=== PATIENT | female | born 1950 | race Caucasian/White ===

== ENCOUNTER → 2020-06-21 | Outpatient (CLI) | payer MEDICARE, OTHER ==
[~2020-06-21] MED LIST: ASCO500 PO; ASPI81CH PO; Aspirin EC81 MG PO; CLAR500CR; CODLIVC PO; DHEA; DHEA PO; ESTRIOL VAG; Evening Primro500 MG PO; Lamisil250 MG PO; METR500 PO; MULVITA PO; Multiple Vitam1 EAC1 PO; NATURE THROID; Natrol Alpha 3300 MG PO; OXYACE5T PO; Omeprazole20 M1; PROG100 PO; THYR60 PO; THYROID PO
[2020-06-21 17:18] LABS: BASOPHILS ABSOLUTE AUTO 0.07 K/mm3 (0.00-0.23); BASOPHILS PERCENT AUTO 1 % (0-2); EOSINOPHILS ABSOLUTE AUTO 0.09 K/mm3 (0.00-0.68); EOSINOPHILS PERCENT AUTO 1 % (0-6); Hematocrit 47.6 % (33.0-51.0); IMMATURE GRAN ABSOLUTE AUTO 0.02 K/mm3 (0.00-0.10); IMMATURE GRAN PERCENT AUTO 0 % (0-1); LYMPHOCYTES ABSOLUTE AUTO 2.83 K/mm3 (0.84-5.20); LYMPHOCYTES PERCENT AUTO 28 % (21-46); MONOCYTES ABSOLUTE AUTO 0.75 K/mm3 (0.16-1.47); MONOCYTES PERCENT AUTO 7 % (4-13); Mean Corpuscular HGB Conc 31.5 g/dL (31.5-36.5); Mean Corpuscular Volume 95 fL (80-100); Mean Platelet Volume 10.8 fL (9.1-12.4); NEUTROPHILS ABSOLUTE AUTO 6.35 K/mm3 (1.96-9.15); NEUTROPHILS PERCENT AUTO 63 % (41-73); Platelet Count 484 K/mm3 (150-400); RDW Coefficient Variation 14.6 % (11.7-14.2); RDW Standard Deviation 50.9 fL (35.1-46.3); White Blood Cell Count 10.11 K/mm3 (4.00-11.30)
== END ==
LOC: PLD 15:45 → LAB SHORT 15:45
PROVIDERS: Obstetrics & Gynecology
DX: Z01.812 Encounter for preprocedural laboratory examination (principal)
CPT/HCPCS: 36415; 85025

== ENCOUNTER 2020-06-27 09:06 | Day surgery (SDC) | payer MEDICARE, OTHER ==
[~2020-06-27] VITALS: Ht 162.6 cm; Wt 67.9 kg
[~2020-06-27 09:06] MED LIST changes: -NATURE THROID
--- NOTE | 2020-06-27 10:00 | NUR ---
History, Chart, Medications and Allergies reviewed before start of procedure. Lungs clear T/O to Auscultation. Patient confirms NPO status and agrees with scheduled surgery. Pre-Op teaching done. Pt verbalizes understanding. Patient States Post-Procedure ride home has been arranged.
[2020-06-27] MEDS ORDERED: NATURE THROID (10:08)
--- NOTE | 2020-06-27 13:02 | NUR ---
PT UP TO BATHROOM TO HAVE A BM; SMALL STOOL PASSED. VAGINAL BLEEDING NOTED IN TOILET; PAD GIVEN.
--- NOTE | 2020-06-27 13:12 | NUR ---
IBUPROFEN 800MG PO X1 GIVEN PER ORDERS FOR PAIN. REFUSES TO TAKE NORCO. PAIN LEVEL 6/10. TOLERATING PO INTAKE. GOOD RELIEF WITH NAUSEA MED.
--- NOTE | 2020-06-27 13:30 | NUR ---
Ambulatory in Day Surgery Discharge instructions reviewed with patient. Patient verbalizes understanding. Copy given to patient to take home. Patient States Post-Procedure ride home has been arranged. Discharged via wheelchair to private car for ride home.
== END 2020-06-27 13:37 | disposition home or self-care (01) ==
LOC: ORSCMMR 09:06 → ORD 09:06 → ORSCMMR 09:07 → ORD 12:00
PROVIDERS: Obstetrics & Gynecology
PROC: 0UB98ZX Excision of Uterus, Via Natural or Artificial Opening Endoscopic, Diagnostic (ICD-10-PCS; principal; 2020-06-27 11:00)
DX: R93.89 Abnormal findings on diagnostic imaging of other specified body structures (principal); N84.0 Polyp of corpus uteri; Z87.891 Personal history of nicotine dependence; J44.9 Chronic obstructive pulmonary disease, unspecified; E03.9 Hypothyroidism, unspecified; Z79.899 Other long term (current) drug therapy
CPT/HCPCS: 88305; 93005; 93010; J1885; J2250; J2405; J3010; J7120

== ENCOUNTER → 2022-12-27 | Outpatient (CLI) | payer MEDICARE, OTHER ==
[~2022-12-27] MED LIST changes: +NATURE THROID
== END | disposition home or self-care (01) ==
LOC: LAB SHORT 15:50 → LAB 15:50
DX: R10.13 Epigastric pain (principal)
CPT/HCPCS: 87338

== ENCOUNTER 2023-01-03 08:08 | Emergency (ER) | payer MEDICARE, OTHER ==
[~2023-01-03] VITALS: Ht 162.6 cm; Wt 59.0 kg
[2023-01-03 09:13] LABS: Source, Urine Clean Catch
[2023-01-03 09:25] LABS: Appearance, Urine Clear (Clear); Bilirubin, Urine Neg (Neg); Blood, Urine Neg (Neg); Color, Urine Yellow (P-Yellow); Glucose Qualitative, Urine Neg (Neg); Ketones, Urine Neg (Neg); Leukocyte Esterase, Urine Neg (Neg); Nitrite, Urine Neg (Neg); Protein, Urine 2+ (Neg); Urobilinogen, Urine NORM (Normal)
[2023-01-03 09:27] LABS: BASOPHILS ABSOLUTE AUTO 0.07 K/mm3 (0.00-0.23); BASOPHILS PERCENT AUTO 1 % (0-2); EOSINOPHILS ABSOLUTE AUTO 0.12 K/mm3 (0.00-0.68); EOSINOPHILS PERCENT AUTO 1 % (0-6); Hemoglobin 15.6 g/dL (11.5-16.0); IMMATURE GRAN ABSOLUTE AUTO 0.05 K/mm3 (0.00-0.10); IMMATURE GRAN PERCENT AUTO 0 % (0-1); LYMPHOCYTES ABSOLUTE AUTO 1.43 K/mm3 (0.84-5.20); LYMPHOCYTES PERCENT AUTO 10 % (21-46); MONOCYTES ABSOLUTE AUTO 1.08 K/mm3 (0.16-1.47); MONOCYTES PERCENT AUTO 8 % (4-13); Mean Corpuscular HGB 30.3 pg (26.0-34.0); Mean Corpuscular HGB Conc 32.5 g/dL (31.5-36.5); Mean Corpuscular Volume 93 fL (80-100); Mean Platelet Volume 10.5 fL (9.1-12.4); NEUTROPHILS ABSOLUTE AUTO 11.16 K/mm3 (1.96-9.15); NEUTROPHILS PERCENT AUTO 80 % (41-73); Platelet Count 488 K/mm3 (150-400); RDW Coefficient Variation 13.9 % (11.7-14.2); RDW Standard Deviation 47.7 fL (35.1-46.3); Red Blood Cell Count 5.15 M/mm3 (3.80-5.20); White Blood Cell Count 13.91 K/mm3 (4.00-11.30)
[2023-01-03 09:40] LABS: Bacteria Not Seen /hpf; Red Blood Cells, Urine Not Seen /hpf (0-2); Squamous Epithelial Cells Few /hpf (Few); White Blood Cells, Urine Not Seen /hpf (0-5)
[2023-01-03 09:46] LABS: Albumin/Globulin Ratio 0.7 (0.8-1.8); Bilirubin, Total 0.9 mg/dL (0.1-1.0); Bun/Creatinine Ratio 17.9 (12.0-20.0); Calcium, Blood 8.9 mg/dL (8.5-10.1); Creatinine, Blood 0.56 mg/dL (0.40-1.00); Globulin, Blood 4.3 g/dL (2.2-4.0); Potassium, Blood 3.6 mmol/L (3.5-5.5); Total Protein, Blood 7.3 g/dL (6.4-8.2)
[2023-01-03 10:00] VITALS: BP 153/91
== END 2023-01-03 10:47 | disposition home or self-care (01) ==
LOC: ER 08:08
PROVIDERS: Student in an Organized Health Care Education/Training Program
DX: R11.0 Nausea (principal); R94.31 Abnormal electrocardiogram [ECG] [EKG]; Z90.2 Acquired absence of lung [part of]; Z79.899 Other long term (current) drug therapy; Z88.5 Allergy status to narcotic agent; Z88.0 Allergy status to penicillin; Z91.040 Latex allergy status; Z87.891 Personal history of nicotine dependence; Z85.118 Personal history of other malignant neoplasm of bronchus and lung
CPT/HCPCS: 80053; 81001; 83690; 85025; 93005; 93010; 96374; 99284-25; J2405

== ENCOUNTER → 2023-04-11 | Outpatient (CLI) | payer MEDICARE, OTHER ==
[2023-04-11 16:53] LABS: Bun/Creatinine Ratio 28.1 (12.0-20.0); Calcium, Blood 9.7 mg/dL (8.5-10.1); Creatinine, Blood 0.71 mg/dL (0.40-1.00); Potassium, Blood 3.9 mmol/L (3.5-5.5)
== END ==
LOC: LAB 10:30 → LAB SHORT 10:30
PROVIDERS: Internal Medicine
DX: I50.20 Unspecified systolic (congestive) heart failure (principal); R60.9 Edema, unspecified
CPT/HCPCS: 80048; 83880

== ENCOUNTER 2024-10-21 10:30 | Day surgery (SDC) | payer MEDICARE, OTHER ==
[~2024-10-21 10:30] MED LIST changes: +Lidocaine 1%-Epineph 1:200000 30 ML SDV ONE
--- NOTE | 2024-10-21 10:54 | NUR ---
10/21/24 1054 [place] PT PRESENTED TO [facility] WITH SISTER, JERO, FOR THYROPLASTY REVISION WITH DR. FREIRE. IN [facility] PT WAS SEEN WITH EMESIS BAG AND DRY HEAVING AT REGISTRATION DESK WHILE GETTING CHECKED IN. UPON THIS RN GOING TO GET THE PATIENT SHE WAS SEEN SPITTING UP INTO HER EMESIS BAG AND REPORTS FEELING DIZZY AND LIGHTHEADED SINCE WAKING THIS MORNING. sHE REPORTS THE NAUSEA JUST STARTED AN HOUR OR SO AGO. PT WITH COMPLICATED HX INCLUDING LUNG CA, S/P LOBECTOMY, CHEMO, RADIATION. NEW DX OF A FIB IN SEPTEMBER, WELL HOSPITALIZATION FOR INFLUENZA A AND PNEUMONIA. DR. FREIRE EXAMINED PT IN THE PRE OP SCALE AREA AND DECISION WAS MADE TO CANCEL THIS SURGERY AND PT TO CONTACT OFFICE TO RESCHEDULE.
== END 2024-10-21 10:54 | disposition home or self-care (01) ==
LOC: ORSCSDS 10:30
DX: J38.01 Paralysis of vocal cords and larynx, unilateral (principal); R13.14 Dysphagia, pharyngoesophageal phase; Z53.9 Procedure and treatment not carried out, unspecified reason

== ENCOUNTER 2024-11-12 12:15 | Inpatient (IN) | payer MEDICARE, OTHER ==
[~2024-11-12] VITALS: Ht 165.1 cm; Wt 57.2 kg
[2024-11-12] VITALS (26 sets, daily range): BP systolic 97–170; BP diastolic 52–142
[~2024-11-12 12:15] MED LIST changes: -Lidocaine 1%-Epineph 1:200000 30 ML SDV ONE; -NATURE THROID; +[UNRECOGNIZED DRUG - OTHER] PO
[2024-11-12] MEDS ORDERED: propofoL 100 ML IV ONE (12:30)
[2024-11-12 12:31] LABS: Calcium, Ionized (POC) 1.13 mmol/L (1.10-1.46); Chloride (POC) 105 mmol/L (98-108); Creatinine (POC) 0.8 mg/dL (0.6-1.0); Glucose (ISTAT POC) 163 mg/dL (70-99); Hemoglobin (POC) 15.3 g/dL (12.0-16.0); Potassium (POC) 2.8 mmol/L (3.5-5.5); Sodium (POC) 139 mmol/L (135-148); Total CO2 (POC) 22 mmol/L (21-32)
[2024-11-12 12:34] LABS: BASOPHILS ABSOLUTE AUTO 0.15 K/mm3 (0.00-0.23); BASOPHILS PERCENT AUTO 1 % (0-2); EOSINOPHILS ABSOLUTE AUTO 0.15 K/mm3 (0.00-0.68); EOSINOPHILS PERCENT AUTO 1 % (0-6); Hematocrit 44.3 % (33.0-51.0); Hemoglobin 14.6 g/dL (11.5-16.0); IMMATURE GRAN ABSOLUTE AUTO 0.39 K/mm3 (0.00-0.10); IMMATURE GRAN PERCENT AUTO 3 % (0-1); LYMPHOCYTES ABSOLUTE AUTO 5.22 K/mm3 (0.84-5.20); LYMPHOCYTES PERCENT AUTO 38 % (21-46); MONOCYTES ABSOLUTE AUTO 0.68 K/mm3 (0.16-1.47); MONOCYTES PERCENT AUTO 5 % (4-13); Mean Corpuscular HGB 32.3 pg (26.0-34.0); Mean Corpuscular Volume 98 fL (80-100); Mean Platelet Volume 10.2 fL (9.1-12.4); NEUTROPHILS ABSOLUTE AUTO 7.04 K/mm3 (1.96-9.15); NEUTROPHILS PERCENT AUTO 52 % (41-73); NRBC ABSOLUTE 0.03 K/mm3 (0.00-0.02); NRBC Auto 0.2 /100 WBC (0.0-0.2); Platelet Count 457 K/mm3 (150-400); RDW Coefficient Variation 15.4 % (11.7-14.2); Red Blood Cell Count 4.52 M/mm3 (3.80-5.20); White Blood Cell Count 13.63 K/mm3 (4.00-11.30)
[2024-11-12] MEDS ORDERED: Potassium Chloride 20 MEQ/15 ML UDC PT ONE (12:35)
[2024-11-12] MEDS ORDERED: Potassium Chloride 40 MEQ in NS 250 ML IV ONE (12:35)
--- NOTE | 2024-11-12 12:48 | NUR ---
Spiritual Care Support Pt. is in ED26. Nurse medical services manager contacted next of kin who is currently out of town, caring for another family member. Pt. arrived by ambulance from a yazidism event at [facility] per [employer]. This dispensary technician notified ED admitting to contact me should someone arrive to see Pt.
[2024-11-12 13:15] LABS: Albumin, Blood 3.2 g/dL (3.4-5.0); Albumin/Globulin Ratio 0.8 (0.8-1.8); Bilirubin, Total 0.8 mg/dL (0.1-1.0); Bun/Creatinine Ratio 19.1 (12.0-20.0); Creatinine, Blood 0.73 mg/dL (0.40-1.00); Globulin, Blood 3.8 g/dL (2.2-4.0); Potassium, Blood 2.8 mmol/L (3.5-5.5)
[2024-11-12] MEDS ORDERED: FentaNYL Citrate 50 MCG/ML 2 ML Injection IV ONE (14:00)
[2024-11-12] MEDS ORDERED: FentaNYL Citrate 50 MCG/ML 2 ML Injection IV PRN ×2 (14:50→17:00)
[2024-11-12] MEDS ORDERED: Lactated Ringer's 1,000 ML IV SCH (14:50)
[2024-11-12] MEDS ORDERED: Etomidate 2MG / ML 10ML Vial IV ONE (14:55)
[2024-11-12] MEDS ORDERED: Rocuronium Bromide 10MG / ML 10ML Vial IV ONE (14:55)
[2024-11-12] MEDS ORDERED: ATROPINE SULFATE 1 MG/ML IV ONE (14:55)
[2024-11-12] MEDS ORDERED: Midazolam HCl 1MG / ML 2ML Vial IV ONE (14:55)
--- NOTE | 2024-11-12 15:16 | NUR ---
Pt. is intubated in ED26 and is not repsonsive. Friend of Pt. is at bedside and verbalizes that pt. was fine last evening. Friend also verbalized that Chely (a family member of the Pt. is on the way. Since the Pt. is a woman of cecilia this fleet service manager prayed over the Pt. and will remain available to her, family and her support system.
[2024-11-12] MEDS ORDERED: METO25ER PO ×2 (15:36→15:37)
[2024-11-12] MEDS ORDERED: ELIQUIS5 M2 PO (15:36)
[2024-11-12] MEDS ORDERED: LATA.005SO BOTHEYES (15:37)
[2024-11-12] MEDS ORDERED: Lactated Ringer's 1,000 ML IV ONE (16:30)
[2024-11-12] MEDS ORDERED: Cetylpyridinium Chloride 1 EA MISC MT SCH (17:00)
[2024-11-12] MEDS ORDERED: LORazepam 2 MG/ML 1ML Injection IV PRN (17:05)
[2024-11-12] MEDS ORDERED: propofoL 100 ML IV SCH (17:15)
[2024-11-12 17:57] LABS: Base Excess Venous -7.2 mmol/L; Bicarbonate Venous 19.7 mmol/L (24.0-30.0); PCO2 Venous 24.5 mmHg (38-42); pH Blood Venous 7.45 (7.34-7.37)
[2024-11-12 18:30] LABS: Base Excess Venous -5.9 mmol/L; Bicarbonate Venous 19.8 mmol/L (24.0-30.0); PCO2 Venous 43.3 mmHg (38-42); pH Blood Venous 7.29 (7.34-7.37)
--- NOTE | 2024-11-12 18:46 | NUR ---
ASSUMPTION OF CARE: ASSUMED CARE OF PT AT 1733, UPON PTS ARRIVAL TO ICU 8 FROM ED. PT TRANSPORTED VIA GURNEY,ACCOMPANIED BY ED RN CHANDANA. PT IS POST CARDIAC ARREST, OBSERVED. PT COMES VENTED FROM ED. VENT SETTINGS AC/VC RATE 14/VT 380/PEEP 5/FIO2 30% PT SATS 100%. PT OBSERVED TO HAVE AFIB RHYTHM, HR 100-130S. SBP 120S-160S. PT OFF OF SEDATION ON ARRIVAL TO ICU, PT BEGAN TO BECOME RESTLESS, PROPOFOL RE-STARTED AT 30MCG//KR/HR. PT RESTING COMFORTABLY SHORTLY AFTER. VITALS STABLE. PT HAS NG TUBE IN PLACE. PT HAS CHAUDHRY CATHETER, REMAINS PATENT, DRAINING YELLOW URINE. PERIPHERAL IVS TO BILAT ACS. I/O TO LEFT HATFIELD. THIS RN TO REPORT TO ONCOMING RN.
[2024-11-12 21:12] LABS: Magnesium, Blood 1.8 mg/dL (1.6-2.4)
[2024-11-12 21:25] LABS: Albumin, Blood 3.3 g/dL (3.4-5.0); Albumin/Globulin Ratio 0.9 (0.8-1.8); Bun/Creatinine Ratio 19.8 (12.0-20.0); Calcium, Blood 8.1 mg/dL (8.5-10.1); Creatinine, Blood 0.66 mg/dL (0.40-1.00); Globulin, Blood 3.6 g/dL (2.2-4.0); Phosphorus, Blood 2.6 mg/dL (2.5-4.9); Total Protein, Blood 6.9 g/dL (6.4-8.2)
[2024-11-12] MEDS ORDERED: SuccINYLCHOLINE Chloride 100 MG/5 ML 5MLSYR IV ONE (22:15)
[2024-11-12] MEDS ORDERED: Etomidate 2MG / ML 10ML Vial XX ONE (22:15)
[2024-11-13] VITALS (90 sets, daily range): BP systolic 124–192; BP diastolic 27–138
[2024-11-13] MEDS ORDERED: Hydrogen Peroxide 1.5 % Solution MT SCH
[2024-11-13 03:17] LABS: BASOPHILS ABSOLUTE AUTO 0.05 K/mm3 (0.00-0.23); BASOPHILS PERCENT AUTO 0 % (0-2); EOSINOPHILS PERCENT AUTO 0 % (0-6); Hematocrit 42.5 % (33.0-51.0); IMMATURE GRAN ABSOLUTE AUTO 0.07 K/mm3 (0.00-0.10); IMMATURE GRAN PERCENT AUTO 0 % (0-1); LYMPHOCYTES ABSOLUTE AUTO 1.07 K/mm3 (0.84-5.20); LYMPHOCYTES PERCENT AUTO 6 % (21-46); MONOCYTES ABSOLUTE AUTO 1.06 K/mm3 (0.16-1.47); MONOCYTES PERCENT AUTO 6 % (4-13); Mean Corpuscular HGB 31.5 pg (26.0-34.0); Mean Corpuscular HGB Conc 32.9 g/dL (31.5-36.5); Mean Corpuscular Volume 96 fL (80-100); Mean Platelet Volume 10.1 fL (9.1-12.4); NEUTROPHILS ABSOLUTE AUTO 14.81 K/mm3 (1.96-9.15); NEUTROPHILS PERCENT AUTO 87 % (41-73); Platelet Count 419 K/mm3 (150-400); RDW Coefficient Variation 15.8 % (11.7-14.2); RDW Standard Deviation 56.2 fL (35.1-46.3); Red Blood Cell Count 4.45 M/mm3 (3.80-5.20); White Blood Cell Count 17.06 K/mm3 (4.00-11.30)
[2024-11-13 03:44] LABS: Albumin, Blood 3.2 g/dL (3.4-5.0); Albumin/Globulin Ratio 0.9 (0.8-1.8); Bilirubin, Total 1.1 mg/dL (0.1-1.0); Calcium, Blood 7.9 mg/dL (8.5-10.1); Creatinine, Blood 0.6 mg/dL (0.40-1.00); Globulin, Blood 3.5 g/dL (2.2-4.0); Magnesium, Blood 1.7 mg/dL (1.6-2.4); Phosphorus, Blood 2.7 mg/dL (2.5-4.9); Potassium, Blood 4.3 mmol/L (3.5-5.5); Total Protein, Blood 6.7 g/dL (6.4-8.2)
--- NOTE | 2024-11-13 05:56 | NUR ---
SHIFT SUMMERY PT REMAINS INTUBATED AND SEDATED, ETT INTACT AND PATENT TO THE VENT. OXYGEN SAT >95% OVERNIGHT ON CURRENT VENT SETTINGS. PT WAS IN AFIB AT THE BEGINING OF THE SHIFT BUT IS NOW SR. BP HAS BEEN WNL. PT HAS BEEN AFEBRILE. CHAUDHRY CATH INTACT PATENT AND DRAINING. NG TUBE CLAMPED. PT HAS HAD NO ACUTE CHANGES OVERNIGHT.
[2024-11-13] MEDS ORDERED: Pantoprazole Sodium 40 MG Injection IV SCH (06:00)
[2024-11-13] MEDS ORDERED: Mag Sulfate 1 GM/D5% 100ML 100 ML IV STA (08:05)
[2024-11-13] MEDS ORDERED: Enoxaparin 40 MG/0.4 ML SYR SC SCH (09:00)
--- NOTE | 2024-11-13 09:30 | NUR ---
PT EXTUBATED AT 0930 BY MARCIE CLARK PER DR RODRIGUEZ. PT TOLERATED WELL SUCTION AND ORAL CARE COMPLETED. PT PLACED ON 2LPM VIA NC, SPO2 REMAINS >95%. PT HTN POST EXTUBATION. FAMILY AND FRIENDS AT BEDSIDE THIS MORNING. FAMILY UPDATED ON PT CONDITION.
[2024-11-13] MEDS ORDERED: CefTRIAXone Sodium 1,000 MG in NS 100 ML IV SCH (10:00)
[2024-11-13] MEDS ORDERED: Metoclopramide HCl 5MG / ML 2ML Vial IV PRN (11:40)
[2024-11-13] MEDS ORDERED: MetroNIDAZOLE 500MG/NS 100 ml 100 ML IV SCH (12:00)
--- NOTE | 2024-11-13 14:07 | NUR ---
Spiritual Care Visit. Pt. is resting but does rouse when I enter the room. Two family friends are at bedside and welcome my visit. Facilitate a short conversation with the Pt. The friends then carry on the conversation as the Pt. became somnolent. Prayed for the Pt. Pt. did respond after Amen, by verbalizing "thank you". Will remain available to the Pt. and her support team.
[2024-11-13] MEDS ORDERED: Prochlorperazine Edisylate 10 mg Vial IV PRN (17:30)
--- NOTE | 2024-11-13 17:50 | NUR ---
PALLIATIVE CARE VISIT: MET WITH PT AND SISTER JERO IN THE ROOM. PT IS AWAKE AND ABLE TO ANSWER QUESTIONS APPROPRIATELY, BUT APPEARS TO BE VERY TIRED SHE CLOSES EYES WITH INTERACTION. SHE IS ABLE TO HAVE MEANINGFUL DISCUSSION. SYMPTOMS. PT DENIES PAIN, SOB, BUT DOES C/O NAUSEA. PT DOES NOT RECALL WHAT HAPPENED PRIOR TO HOSPITALIZATION OTHER THAN SHE WAS AT [facility]. PT STATES SHE DOES HAVE ADVANCE DIRECTIVE AND POLST AT HOME. SISTER JERO STATED SHE WOULD LOOK FOR THE AD/POLST AND BRING IN TOMORROW IF SHE FINDS IT WHERE HER SISTER CLAIMS IT IS LOCATED. PT STATES SHE WOULD WANT CPR AGAIN IF SHE NEEDED IT. ENDED CONVERSATION DUE TO PT SYMPTOMS OF NAUSEA. UPDATED PRIMARY RN AND CALLED DR. LOPEZ TO REPORT SYMPTOMS OF NAUSEA. COMPAZINE 5 MG Q6PRN ORDERED.
[2024-11-13] MEDS ORDERED: Metoprolol Succinate 25 MG TABCR PO SCH (18:40)
--- NOTE | 2024-11-13 18:53 | NUR ---
SHIFT SUMMARY PT RESPONDS TO VERBAL STIMULI-DROWSY. ORIENTED TO SELF AND PLACE ONLY. FORGETFUL. SPEAKING IN SENTENCES, ASKING QUESITONS. MOVES EXTREMITIES WELL, FOLLOWS COMMANDS BUT GENERALLY WEAK. LUNGS: CLEAR/DIM. SPO2 >92 ON 2LPM VIA NC CARDIAC: HTN, AFIB/SR- SOME NOTED BIGEM. CARDIOLOGY IN TO SEE PT - DR IVAN. ECHO COMPLETED.VERBAL ORDERS FROM DR IVAN TO START HEPARIN GTT AND RESTART METORPROLOL. GI: NORMOACTIVE BOWEL TONES, SMALL BM TODAY. : CHAUDHRY IN PLACE DRAINING TO GRAVITY PARTICIPATING IN BED MOBILITY, GENERALIZED WEAKNESS
[2024-11-13 20:12] LABS: International Normalized Ratio 1.15; Prothrombin Time Results 12.2 Sec (9.7-11.5)
[2024-11-13] MEDS ORDERED: Heparin Sodium,Porcine/0.5 NS 500 ML IV SCH (20:35)
[2024-11-13] MEDS ORDERED: Heparin Sodium 5000 Units/ML 1ML MDV IV ONE (20:35)
--- NOTE | 2024-11-13 21:20 | NUR ---
ASSUMPTION OF CARE: ASSUMED CARE OF PT AT 1900. PT ALERT AND ORIENTED TO PERSON, SELF AND DATE/TIME. UNAWARE OF LOCATION. FOLLOWS SIMPLE DIRECTION BUT IS NOTICEABLY WEAK IN ALL EXTREMETIES. MOVES ALL EXTREMETIES SLOWLY. PT ON 2L AT SHIFT CHANGE, DESATTING TO 88%. BUMPED UP O2 TO 6L, SATTING 88-94%. DENIES SOB. LUNGS CLEAR/DIM T/O. STUDENT RECORDS COORDINATOR IN PLACE, ST WITH PVC'S. HR 110-120'S. SBP 140'S. DENIES CP. CHAUDHRY PATENT AND DRAINING TO GRAVITY. LR INFUSING AT 75 ML/HR. PIVS PATENT. NO BM YET. ATTEMPTED TO DO BEDSIDE SWALLOW, PT STARTED COUGHING ON SMALL SIP OF WATER. ATTEMPTED TO STAND AND TRANSFER TO BSC FOR BM, PT TOO WEAK. BED LOW AND LOCKED, CALL LIGHT IN REACH.
[2024-11-13] MEDS ORDERED: HydrALAZINE HCl 20 MG / ML 1ML Vial IV PRN (22:00)
[2024-11-13] MEDS ORDERED: Albuterol 2.5 MG/3 ML VIAL ONE (22:22)
[2024-11-13] MEDS ORDERED: Ipratropium/Albuterol SulF 2.5-0.5MG/3 ML Amp ONE (22:22)
[2024-11-13] MEDS ORDERED: Ipratropium/Albuterol SulF 2.5-0.5MG/3 ML Amp INH ONE (22:30)
[2024-11-13] MEDS ORDERED: Albuterol 2.5 MG/3 ML VIAL INH ONE (22:30)
[2024-11-13 23:03] LABS: Base Excess Venous -5.8 mmol/L; Bicarbonate Venous 19.3 mmol/L (24.0-30.0); pH Blood Venous 7.25 (7.34-7.37)
[2024-11-13] MEDS ORDERED: Ipratropium/Albuterol SulF 2.5-0.5MG/3 ML Amp INH PRN (23:15)
[2024-11-13] MEDS ORDERED: FentaNYL Citrate 50 MCG/ML 2 ML Injection IV ONE (23:50)
[2024-11-14] VITALS (113 sets, daily range): BP systolic 94–161; BP diastolic 50–85
[2024-11-14] MEDS ORDERED: propofoL 100 ML IV SCH (00:10)
[2024-11-14] MEDS ORDERED: dexmedeTOMIDine 100 ML IV SCH (00:25)
--- NOTE | 2024-11-14 00:39 | NUR ---
UPDATE: PT DECLINING, RESP RATE 40-50, HR 130-150'S. PT STATING SHE WAS HAVING A HARD TIME BREATHING. PT APPEARED VERY PALE AND WAS SITTING IN TRIPOD POSITION. DR. RUBIO INITIALLY AT BEDSIDE, CHEST X-RAY AND VBG ORDERED. CALL PLACED TO DR. RODRIGUEZ TO DISCUSS PT CONDITION, DR. RODRIGUEZ AT BEDSIDE FOR INTUBATION R/T PT WORK OF BREATHING AND INCREASED OXYGEN REQUIREMENTS. PT ON 15L NON REBREATHER PRIOR TO INTUBATION. PT GIVEN 50 ROCURONIUM, 15 ETOMIDATE, 50 FENTANYL, 4 VERSED FOR INTUBATION. PT SUCCESSFULLY INTUBATED AT 2358 WITH 7.5 ETT, 23 AT TEETH. POSITIVE COLOR CHANGE NOTED. VENT SETTINGS AC/VC + 22/400/5.0/75%. PT SATTING 98% CURRENTLY, APPEARS COMFORTABLE.
[2024-11-14] MEDS ORDERED: dilTIAZem HCL 125 MG in Dextrose 5% 100 ML IV SCH (00:50)
--- NOTE | 2024-11-14 01:00 | NUR ---
UPDATE: CENTRAL LINE PLACED TO RIJ BY DR. RODRIGUEZ. CHEST X-RAY OBTAINED.
--- NOTE | 2024-11-14 01:23 | NUR ---
UPDATE: ATTEMPTED TO CALL PT FAMILY/FRIEND JERO FOR CONSENT FOR CENTRAL LINE INSERTION AND UPDATE ON PT CONDITION POST INTUBATION. DID NOT ANSWER, LEFT VOICEMAIL WITH NO RETURN CALL THUS FAR.
[2024-11-14 02:11] LABS: Base Excess Venous -3.4 mmol/L; Bicarbonate Venous 21.6 mmol/L (24.0-30.0); PCO2 Venous 38.3 mmHg (38-42); pH Blood Venous 7.37 (7.34-7.37)
[2024-11-14 02:21] LABS: BASOPHILS ABSOLUTE AUTO 0.04 K/mm3 (0.00-0.23); BASOPHILS PERCENT AUTO 0 % (0-2); EOSINOPHILS PERCENT AUTO 0 % (0-6); Hemoglobin 12.7 g/dL (11.5-16.0); IMMATURE GRAN ABSOLUTE AUTO 0.09 K/mm3 (0.00-0.10); IMMATURE GRAN PERCENT AUTO 1 % (0-1); LYMPHOCYTES ABSOLUTE AUTO 0.48 K/mm3 (0.84-5.20); LYMPHOCYTES PERCENT AUTO 3 % (21-46); MONOCYTES ABSOLUTE AUTO 1.21 K/mm3 (0.16-1.47); MONOCYTES PERCENT AUTO 7 % (4-13); Mean Corpuscular HGB 31.8 pg (26.0-34.0); Mean Corpuscular HGB Conc 32.6 g/dL (31.5-36.5); Mean Corpuscular Volume 98 fL (80-100); Mean Platelet Volume 10.6 fL (9.1-12.4); NEUTROPHILS ABSOLUTE AUTO 16.65 K/mm3 (1.96-9.15); NEUTROPHILS PERCENT AUTO 90 % (41-73); Platelet Count 378 K/mm3 (150-400); RDW Coefficient Variation 15.9 % (11.7-14.2); RDW Standard Deviation 57.6 fL (35.1-46.3); White Blood Cell Count 18.47 K/mm3 (4.00-11.30)
--- NOTE | 2024-11-14 02:23 | NUR ---
UPDATE: SPOKE WITH PT FAMILY/FRIEND JERO, UPDATED TO PT CONDITION INCLUDING THE NEED FOR INTUBATION AND CENTRAL LINE.
[2024-11-14 02:35] LABS: Bun/Creatinine Ratio 21.2 (12.0-20.0); Calcium, Blood 7.9 mg/dL (8.5-10.1); Creatinine, Blood 0.57 mg/dL (0.40-1.00); Magnesium, Blood 1.8 mg/dL (1.6-2.4); Phosphorus, Blood 1.4 mg/dL (2.5-4.9); Potassium, Blood 3.2 mmol/L (3.5-5.5)
[2024-11-14] MEDS ORDERED: Mag Sulfate 1 GM/D5% 100ML 100 ML IV ONE (02:45)
[2024-11-14] MEDS ORDERED: Potassium Phosphate Dibasic 30 MM in Dextrose 5% 500 ML IV ONE (03:30)
--- NOTE | 2024-11-14 06:13 | NUR ---
SHIFT SUMMARY: PT INTUBATED AND SEDATED THIS SHIFT. PROPOFOL AT 10 MCG/KG/MIN. PT OPENS EYES TO VERBAL STIMULI AND FOLLOWS COMMANDS. SHAKES HEAD YES AND NO TO QUESTIONS. VENT SETTINGS AC/VC + 22/400/5.0/50%. SPO2 MID TO HIGH 90'S. DENIES SOB. ETCO2 21-25. ETT 7.5, [address]BAG FINISHER IN PLACE, SR/ST/AFIB THIS SHIFT WITH FREQUENT PVC'S. HR VARYING FROM 90-140'S. SBP 120-180. NO OGT PLACED THIS SHIFT, ATTEMPTED, UNSUCCESSFUL, DR. RODRIGUEZ SAID DO NOT ATTEMPT AGAIN. POWERGLIDE TO KRISTI PATENT. CENTRAL LINE TO RIJ PATENT. LR AT 75 ML/HR. K PHOS INFUSING. 1G MAG GIVEN THIS SHIFT. HEPARIN AT 15 UNITS/KG/HR. CHAUDHRY PATENT AND DRAINING TO GRAVITY. SMALL BM THIS SHIFT. BED LOW AND LOCKED.
--- NOTE | 2024-11-14 07:00 | NUR ---
ASSUMPTION OF CARE BEDSIDE REPORT RECEIVED FROM DEMETRICE REYES. PT IS RECEIVING PROPOFOL 10MCG/KG/MIN, HEPARIN 15UNITS/KG/HR AND LR 75ML/HR. RASS 0. PT IS AWAKE, FOLLOWING COMMANDS AND ANSWERING QUESTIONS BY NODDING/SHAKING HEAD. PT DENIES PAIN. SHE INDICATES SHE NEEDS TO USE THE BEDPAN, ASSISTANCE PROVIDED. SINUS ON MONITOR WITH RATE IN 90S, OCCASIONAL PVCS. MAP >65. CHAUDHRY PATENT AND DRAINING TO GRAVITY. SEE SHIFT ASSESSMENT.
[2024-11-14] MEDS ORDERED: Dose Adjust by Pharmacy XX STA ×3 (08:39→23:03)
[2024-11-14] MEDS ORDERED: Empagliflozin 10 MG TAB PO SCH (10:30)
[2024-11-14] MEDS ORDERED: Losartan Potassium 25 MG Tab PO SCH (10:30)
[2024-11-14] MEDS ORDERED: Furosemide 10 MG/ML 4ML Vial IV SCH (10:30)
[2024-11-14] MEDS ORDERED: Carvedilol 3.125 MG Tab PO SCH (10:30)
[2024-11-14] MEDS ORDERED: Hydrogen Peroxide 1.5 % Solution MT SCH (12:00)
--- NOTE | 2024-11-14 17:23 | NUR ---
TONIO HORN PT RECEIVING PROPOFOL 30MCG/KG/MIN AND HEPARIN 21UNITS/KG/HR. SHE REMAINS INTUBATED WITH VENT SETTINGS AC/VC+ 22/400/5/30%. RASS 0 FOR MOST OF THE DAY AND COMMUNICATING BY NODDING/SHAKING HEAD AND WRITING. FRIENDS AT BEDSIDE THROUGHOUT THE DAY. THIS EVENING PT APPEARS TIRED, C/O THROAT DISCOMFORT. MEDICATED PER EMAR AND PROPOFOL TITRATED PER FLOWSHEET. PT CONTINUES TO HAVE MODERATE AMOUNT OF ORAL AND ETT SECRETIONS THAT ARE THICK RED AND WHITE. DOBHOFF PLACED THIS SHIFT AT 60CM AND TRICKLE FEEDS STARTED. PT HAD 1 BM THIS SHIFT. SINUS WITH PACS AND PVCS ON MONITOR WITH RATE IN 80S. MAP >65. CHAUDHRY PATENT AND DRAINING TO GRAVITY. FRIENDS REMAIN AT BEDSIDE, CALL LIGHT WITHIN REACH.
[2024-11-14] MEDS ORDERED: Cetylpyridinium Chloride 1 EA MISC MT SCH (20:00)
[2024-11-15] VITALS (43 sets, daily range): BP systolic 100–145; BP diastolic 47–106
[2024-11-15 05:35] LABS: BASOPHILS ABSOLUTE AUTO 0.06 K/mm3 (0.00-0.23); BASOPHILS PERCENT AUTO 1 % (0-2); EOSINOPHILS ABSOLUTE AUTO 0.16 K/mm3 (0.00-0.68); EOSINOPHILS PERCENT AUTO 1 % (0-6); Hematocrit 39.8 % (33.0-51.0); Hemoglobin 13.4 g/dL (11.5-16.0); IMMATURE GRAN ABSOLUTE AUTO 0.04 K/mm3 (0.00-0.10); IMMATURE GRAN PERCENT AUTO 0 % (0-1); LYMPHOCYTES ABSOLUTE AUTO 1.52 K/mm3 (0.84-5.20); LYMPHOCYTES PERCENT AUTO 12 % (21-46); MONOCYTES ABSOLUTE AUTO 0.87 K/mm3 (0.16-1.47); MONOCYTES PERCENT AUTO 7 % (4-13); Mean Corpuscular HGB 31.9 pg (26.0-34.0); Mean Corpuscular HGB Conc 33.7 g/dL (31.5-36.5); Mean Corpuscular Volume 95 fL (80-100); Mean Platelet Volume 10.7 fL (9.1-12.4); NEUTROPHILS ABSOLUTE AUTO 10.14 K/mm3 (1.96-9.15); NEUTROPHILS PERCENT AUTO 79 % (41-73); Platelet Count 385 K/mm3 (150-400); RDW Standard Deviation 55.9 fL (35.1-46.3); White Blood Cell Count 12.79 K/mm3 (4.00-11.30)
--- NOTE | 2024-11-15 05:46 | NUR ---
SHIFT SUMMARY PT IS INTUBATED AND SEDATED, PROPOFOL INFUSING AT 25 MCG/KG/MIN. PT IS AWAKE AND ANSWERING QUESTIONS. ASKING QUESTIONS/MAKING NEEDS KNOWN WITH PEN AND PAPER. DENIES PAIN. IS EAGER TO "BE DONE WITH THIS BUSINESS". VENT SETTINGS REMAIN THE SAME T/O SHIFT, SATS > 98%. HR 70-80'S MOST OF SHIFT, DID HAVE A FEW QUICK EPISODES OF BRADYCARDIA IN THE 40'S BUT RECOVERED QUICKLY AND WAS ASYMPTOMATIC, DECREASED SEDATION FROM 30 TO 25MCG TO HELP WITH BRADYCARDIA. PT HAD SMALL BM THIS SHIFT ON BEDPAN. CLEAR YELLOW URINE DRAINING VIA CHAUDHRY. AFEBRILE. CHG BATH DONE. HEPARIN INFUSING AT 22U/KG. NO ACUTE EVENTS.
[2024-11-15 06:01] LABS: Magnesium, Blood 2.1 mg/dL (1.6-2.4)
[2024-11-15 06:02] LABS: Albumin, Blood 2.8 g/dL (3.4-5.0); Albumin/Globulin Ratio 0.9 (0.8-1.8); Bilirubin, Total 1.2 mg/dL (0.1-1.0); Bun/Creatinine Ratio 21.2 (12.0-20.0); Calcium, Blood 8.2 mg/dL (8.5-10.1); Creatinine, Blood 0.66 mg/dL (0.40-1.00); Globulin, Blood 3.2 g/dL (2.2-4.0); Potassium, Blood 2.6 mmol/L (3.5-5.5)
[2024-11-15] MEDS ORDERED: Dose Adjust by Pharmacy XX STA ×3 (06:10→22:54)
[2024-11-15] MEDS ORDERED: Potassium Chloride 60 MEQ IV ONE (06:15)
[2024-11-15] MEDS ORDERED: Potassium Chl 20MEQ/Water100ML 100 ML IV SCH (06:30)
--- NOTE | 2024-11-15 07:00 | NUR ---
ASSUMPTION OF CARE PT RECEIVING PROPOFOL 25MCG/KG/MIN AND HEPARIN 23UNITS/KG/HR. SHE REMAINS INTUBATED WITH VENT SETTINGS AC/VC+ 22/400/5/30%. RASS 0. PT IS ALERT, WRITING ON CLIPBOARD. RESTRAINTS DISCONTINUED. PROVIDED EDUCATION REGARDING IMPORTANCE OF NOT TOUCHING/PULLING LINES/CORDS AND PT NODS IN UNDERSTANDING. SINUS ON MONITOR WITH RATE IN 80S. MAP >65. DOBHOFF AT 60CM WITH PIVOT INFUSING. RIJ CENTRAL LINE REMAINS IN PLACE. CHAUDHRY PATENT AND DRAINING TO GRAVITY. CARDIOLOGY ROUNDED AND UPDATED ON EPISODES OF BRADYCARDIA OVERNIGHT. PLAN TO CONTINUE MEDICATION REGIMEN PER EMAR. BED IN LOW POSITION, CALL LIGHT WITHIN REACH.
--- NOTE | 2024-11-15 11:17 | NUR ---
BLOOD CONSENT IN CONVERSATION, PT'S HEALTHCARE REMOTE CODERS JERO GRIMES PT DOES NOT CONSENT TO A BLOOD TRANSFUSION. SHE STS THAT THIS WISH IS DOCUMENTED FROM A PRIOR HOSPITALIZATION AT [facility]. WHEN TOLD THIS INFOMRATION WILL BE PUT IN HER CHART, PT GIVES A THUMBS UP AND NODS IN AGREEMENT. PT AND REMOTE CODERS AWARE THAT A BLOOD TRANSFUSION IS NOT INDICATED AT THIS TIME AND JUST WANT TO ENSURE INFORMATION WAS DOCUMENTED. ANIMAL IMPERSONATOR NOTIFIED.
[2024-11-15] MEDS ORDERED: Bisacodyl 10 MG Supp PR PRN (12:55)
[2024-11-15] MEDS ORDERED: Magnesium Hydroxide Conc 10 ML UDC PT PRN (12:55)
[2024-11-15] MEDS ORDERED: Docusate Sodium Liquid 100 MG UDC PT PRN (12:55)
[2024-11-15] MEDS ORDERED: Potassium Chloride 40 MEQ in NS 250 ML IV ONE (16:05)
--- NOTE | 2024-11-15 18:10 | NUR ---
SHIFT SUMMARY PT RECEIVING PROPOFOL 40MCG/KG/MIN AND HEPARIN 24UNITS/KG/HR. PT WAS AWAKE THIS MORNING, WRITING TO COMMUNICATE. PT BEGAN HAVING FREQUENT COUGHING EPISODES AND SEDATION TITRATED UP. CURRENT RASS -2. SHE REMAINS INTUBATED WITH VENT SETTINGS AC/VC+ 22/400/5/30%. DOBHOFF AT 60CM AND TF INFUSING AT GOAL RATE. CHAUDHRY PATENT AND DRAINING TO GRAVITY. RESTRAINTS OFF THROUGHOUT THE DAY AND VISITORS AT BEDSIDE.
--- NOTE | 2024-11-15 19:51 | NUR ---
ASSUMPTION OF CARE REPORT RECIEVED FROM DAY SHIFT NURSE. PT COMFORTABLE IN BED AND HAS BEEN DOING WELL TODAY. REPORTED TO THIS NURSE THAT PLANS WERE DISCUSSED WITH FAMILY TODAY AND THAT FAMILY FELT IT WOULD BE GOOD TO LET PT REST FOR THE NIGHT. WILL CONTINUE TO MONITOR.
[2024-11-16] VITALS (65 sets, daily range): BP systolic 82–145; BP diastolic 39–119
[2024-11-16 03:34] LABS: BASOPHILS ABSOLUTE AUTO 0.08 K/mm3 (0.00-0.23); BASOPHILS PERCENT AUTO 1 % (0-2); EOSINOPHILS ABSOLUTE AUTO 0.28 K/mm3 (0.00-0.68); EOSINOPHILS PERCENT AUTO 3 % (0-6); Hematocrit 40.3 % (33.0-51.0); Hemoglobin 13.2 g/dL (11.5-16.0); IMMATURE GRAN ABSOLUTE AUTO 0.04 K/mm3 (0.00-0.10); IMMATURE GRAN PERCENT AUTO 0 % (0-1); LYMPHOCYTES ABSOLUTE AUTO 1.84 K/mm3 (0.84-5.20); LYMPHOCYTES PERCENT AUTO 19 % (21-46); MONOCYTES PERCENT AUTO 7 % (4-13); Mean Corpuscular HGB 31.2 pg (26.0-34.0); Mean Corpuscular HGB Conc 32.8 g/dL (31.5-36.5); Mean Corpuscular Volume 95 fL (80-100); Mean Platelet Volume 10.4 fL (9.1-12.4); NEUTROPHILS ABSOLUTE AUTO 6.66 K/mm3 (1.96-9.15); NEUTROPHILS PERCENT AUTO 69 % (41-73); Platelet Count 406 K/mm3 (150-400); RDW Standard Deviation 55.8 fL (35.1-46.3); Red Blood Cell Count 4.23 M/mm3 (3.80-5.20)
[2024-11-16 03:55] LABS: Albumin, Blood 2.4 g/dL (3.4-5.0); Albumin/Globulin Ratio 0.7 (0.8-1.8); Bilirubin, Total 0.7 mg/dL (0.1-1.0); Bun/Creatinine Ratio 27.3 (12.0-20.0); Calcium, Blood 7.7 mg/dL (8.5-10.1); Creatinine, Blood 0.66 mg/dL (0.40-1.00); Globulin, Blood 3.5 g/dL (2.2-4.0); Magnesium, Blood 2.1 mg/dL (1.6-2.4); Phosphorus, Blood 1.4 mg/dL (2.5-4.9); Total Protein, Blood 5.9 g/dL (6.4-8.2)
[2024-11-16] MEDS ORDERED: Dose Adjust by Pharmacy XX STA ×2 (04:33→11:36)
[2024-11-16] MEDS ORDERED: Potassium Phosphate Dibasic 30 MM in Dextrose 5% 500 ML IV ONE (05:15)
[2024-11-16] MEDS ORDERED: Potassium Chloride 20 MEQ/15 ML UDC PO SCH (09:00)
--- NOTE | 2024-11-16 09:58 | NUR ---
SPONTANEOUS BREATHING TRIAL: SPONTANEOUS BREATHING TRIAL STARTED AT 09:55. PATIENT ALERT AND ORIENTED TO SELF, FAMILY, FOLLOWING DIRECTIONS AND SITUATION. SPO2 96%. RR 20-23 BPM. VOLUMES IN THE 300MLS. GUANAKITO RT AT BEDSIDE. SETTINGS 10/5/25%.
[2024-11-16] MEDS ORDERED: Magnesium Sulf 2 GM/Water 50ML 50 ML IV ONE (10:00)
[2024-11-16] MEDS ORDERED: NS 250 ML IV PRN (10:30)
[2024-11-16] MEDS ORDERED: Potassium Phosphate Dibasic 30 MM in Dextrose 5% 500 ML IV STA (12:26)
--- NOTE | 2024-11-16 12:39 | NUR ---
ASSUMPTION OF CARE: ASSUMED CARE AT START OF SHIFT (0700) FROM RN. PT IS RESTING IN BED, THEY ARE INTUBATED ON VENTILATOR AND SEDATED. THEY WILL OPEN THEIR EYES TO VERBAL AND CAN FOLLOW SIMPLE COMMANDS. WHEN THEY ARE NOT SEDATED THEY ARE ABLE TO COMMUNICATE WITH PEN AND PAPER, OR CAN POINT AT PICTURES. THEY HAVE A CENTRAL LINE IN RIJ, POWERGLIDE IN THE RIGHT ARM, AND PERIPHAL IV IN LEFT ARM. PT HAS CHAUDHRY CATHETER IN PLACE. THEIR BP HAS BEEN STABLE WITH MAP IN THE 80'S, HR 70-80'S. THEY ARE RECEIVING CONTINUOUS FEEDING THROUGH OG TUBE. LINES, CORDS, AND TUBES WERE PLACED OUT OF THE WAY. CALL LIGHT IS PLACED WITHIN REACH. WILL CONTINUE TO MONITOR.
--- NOTE | 2024-11-16 12:57 | NUR ---
END OF SPONTANEOUS BREATHING TRIAL: ENDED SBT SO THAT PATIENT COULD GO TO HEAD CT. PATIENT TOLERATED SBT WELL. RATE IN THE MID TO HIGH 20S. VOLUMES IN THE 200S-400S. SPO2 >96%. PATIENT ABLE TO COMMUNICATE WITH STAFF AND FAMILY/FRIENDS BY WRITING NOTES. PATIENT CONTINUES TO HAVE LARGE LEVELS OF ORAL SECRETIONS. PATIENT FOLLOWING DIRECTIONS WITH THE ORAL SUCTION. PINK/RED SPUTUM WITH ETT SUCTIONING.
--- NOTE | 2024-11-16 18:16 | NUR ---
SHIFT SUMMARY: PT DID WELL THROUGHOUT THE DAY. THEIR SEDATION WAS TURNED OFF FOR PART OF THE DAY AND THEY BECAME MORE ALERT AND COMMUNICATING VIS PAPER AND PEN. THEY WERE ABLE TO SIT IN A CHAIR AND HAD A SPONTANEOUS BREATHING TRAIL WHICH WENT WELL, THEY WERE PROUDCING A LOT OF SECRETIONS, REQUIRING MULTIPLE SUCTIONINGS. THE PT IS EAGER TO HAVE THE ET TUBE REMOVED BUT THE DOCTOR WANTS TO WAIT A LITTLE LONGER BEFORE REMOVING THE ET TUBE. PRIOR TO STOPPING THE SEDATION IT APPEARED THE PT WAS MORE WEAKER ON THEIR LEFT SIDE, AFTER THE SEDATION WAS STOPPED THEY DID REGAIN SOME STRENGTH ON THE LEFT SIDE BUT IT WAS STILL COMPARED TO THE RIGHT SIDE. DOCTOR ORDERED A CT SCAN, WHICH SHOWED THE PT HAD A LEFT CEREBELLAR INFARCT. PRIOR TO GOING TO CT, THEIR SEDATION WAS RESTARTED. AFTER CT THE PATIENT WANTED TO SIT BACK IN THE CHAIR BUT THEY APPPEARED TO BE TIRED, SO THEY REMAINED IN BED. THEI RLINES, DRAINS, AND TUBES WERE KEPT OUT OF THE WAY. CALL LIGHT WAS PLACED WITHIN REACH.
--- NOTE | 2024-11-16 18:53 | NUR ---
PALLIATIVE CARE NOTE: MET WITH PT IN HER ROOM. FAMILY/FRIENDS ARE PRESENT. PT IS SITTING UP AWAKE AND WRITING NEEDS ON A PAD OF PAPER. PT WRITES SHE DOES NOT WANT ANY BLOOD PRODUCTS WHILE HOSPITALIZED WHEN ASKED IF SHE HAS ANY NEEDS. DR. ROYAL REQUESTED TO GO OVER BLOOD CONSENT. PT SIGNED REFUSAL OF BLOOD PRODUCTS AND WROTE SHE DOES NOT WANT BLOOD BECAUSE SHE DOES NOT WANT TO GET COVID FROM BLOOD PRODUCTS. DR. ROYAL STATED HE WAS NOT CONCERNED ABOUT HER NEEDING BLOOD PRODUCTS. PT DENIES ANY OTHER NEEDS AT THIS TIME. PT IS TO HAVE TRIAL EXTUBATION LATER TODAY. FAMILY DENY ANY NEEDS FROM PALLIATIVE CARE AT THIS POINT.
[2024-11-16] MEDS ORDERED: Carvedilol 3.125 MG Tab PT SCH (21:00)
[2024-11-17] VITALS (69 sets, daily range): BP systolic 97–149; BP diastolic 51–98
[2024-11-17 04:18] LABS: BASOPHILS ABSOLUTE AUTO 0.08 K/mm3 (0.00-0.23); BASOPHILS PERCENT AUTO 1 % (0-2); EOSINOPHILS ABSOLUTE AUTO 0.41 K/mm3 (0.00-0.68); EOSINOPHILS PERCENT AUTO 4 % (0-6); Hemoglobin 13.5 g/dL (11.5-16.0); IMMATURE GRAN ABSOLUTE AUTO 0.03 K/mm3 (0.00-0.10); IMMATURE GRAN PERCENT AUTO 0 % (0-1); LYMPHOCYTES ABSOLUTE AUTO 1.96 K/mm3 (0.84-5.20); LYMPHOCYTES PERCENT AUTO 20 % (21-46); MONOCYTES PERCENT AUTO 7 % (4-13); Mean Corpuscular HGB 31.5 pg (26.0-34.0); Mean Corpuscular HGB Conc 32.9 g/dL (31.5-36.5); Mean Corpuscular Volume 96 fL (80-100); Mean Platelet Volume 10.6 fL (9.1-12.4); NEUTROPHILS ABSOLUTE AUTO 6.71 K/mm3 (1.96-9.15); NEUTROPHILS PERCENT AUTO 68 % (41-73); Platelet Count 375 K/mm3 (150-400); RDW Coefficient Variation 16.3 % (11.7-14.2); RDW Standard Deviation 57.3 fL (35.1-46.3); Red Blood Cell Count 4.28 M/mm3 (3.80-5.20); White Blood Cell Count 9.89 K/mm3 (4.00-11.30)
[2024-11-17] MEDS ORDERED: Dose Adjust by Pharmacy XX STA (04:46)
[2024-11-17 04:48] LABS: Bun/Creatinine Ratio 27.2 (12.0-20.0); Calcium, Blood 7.7 mg/dL (8.5-10.1); Creatinine, Blood 0.59 mg/dL (0.40-1.00); Magnesium, Blood 2.4 mg/dL (1.6-2.4); Phosphorus, Blood 3.7 mg/dL (2.5-4.9); Potassium, Blood 2.9 mmol/L (3.5-5.5)
--- NOTE | 2024-11-17 05:37 | NUR ---
SHIFT SUMMARY PT HAS TOLERATED SHIFT WELL WITH NO CHANGES IN STATUS. PT CONTINUES TO BE COOPERATIVE AND ALERT WHILE ON VENTELATION. PT ABLE TO COMMUNICATE NEEDS WITH THIS NURSE BY NODDING OR SHAKING HEAD YES OR NO WHEN ASKED DIRECT QUESTIONS. PT ATTEMPTS TO WRITE NEEDS AT BEGINNING OF SHIFT BUT WAS UNABLE TO CLEARLY WRITE ANYTHING THIS NURSE WAS ABLE TO INTERPRET. PT APPEARS COMFORTABLE IN BED AT THIS TIME. WILL CONTINUE TO MONITOR UNTIL REPORT PASSED TO DAY SHIFT TEAM.
[2024-11-17] MEDS ORDERED: Potassium Chloride 20 MEQ/15 ML UDC PT SCH ×2 (06:00→09:00)
[2024-11-17] MEDS ORDERED: Losartan Potassium 25 MG Tab PT SCH (09:00)
--- NOTE | 2024-11-17 10:59 | NUR ---
update: pt extubated Patient having oral secretions/ clear in color. Patient is extubated at 1053. Dobbhoff remains in place through nares. Patient alert and oriented writing notes d/t still a very hoarse throat.
--- NOTE | 2024-11-17 13:28 | NUR ---
Spiritual Care Visit. Pt. is awake and sitting up in a chair. Pts. medical advocate Chely is at bedside. Facilitate a life review and assit the Pt. is recalling some of the details of her coming into the hospital from her prayer meeting at [facility]. Pt. displayed evidence of selective memory of her collapse at her prayer mtg. Listened and shared with empathy as this postie was in the ED when she arrived as a trauma Pt. Pt. displayed evidence of spunk and verbalized questions about her hospitalization. Prayed with the Pt. and Chely. Pt. verbalized gratitude for the spiritual care visit. Will remain available.
--- NOTE | 2024-11-17 13:57 | NUR ---
UPDATE PSOT EXTUBATION; PT REMAINS ON ROOMAIR, ALERT AND TALKING, SOFT VOICE. COUGHING OUT PINK CLEAR SPUTUM ABLE TO SELF SUCTION. ASKED DR ROYAL TO VERIFY RESTARTING TUBE FEEDING PER BOWL ATTENDANT, WANTS TO HOLD OFF FOR NOW UNTIL AM TO RESTART TUBE FEEDING. DR IVAN ALSO CAME BY TO DISCUSS PLANS WITH PT AND FAMILY AT BEDSIDE. PT IS UP IN THE RECLINER TOLERATING WELL. ORAL CARE PROVIDED, CHG BATH GVEN. HEP GTT INFUSING. MEDS GIVEN VIA DOBHOFF. PT HAD A COUPLE LOOSE BM'S FOR THE SHIFT. WILL CONTINUE TO MONITOR
[2024-11-17] MEDS ORDERED: Atorvastatin 40 MG Tab PT SCH (18:00)
--- NOTE | 2024-11-17 18:26 | NUR ---
PT SUMMARY; PT HAS BEEN ALERT AWAKE AND TALKING POST EXTUBATION. REMAINED ON ROOMAIR SATS KEPT ABOVE 95%, PT HAS BEEN SELF SUCTIONING. CUTTER BARREL DRUM ORDERED TO RESTART TUBE FEED AT GOAL RATE 40ML/HR, VERIFIED WITH DR ROYAL WANTING TO HOLD OFF ON TUBE FEED UNTIL AM. FOR SPEECH EVAL IN AM. FAMILY AT BEDSIDE T/O SHIFT, AWARE OF THE PLAN OF CARE. VITALS HAS BEEN STABLE. PT REFUSED LIPITOR EVEN AFTER EDUCATING IMPORTANCE OF THE MEDICATION. PT IS CURRENTLY UP IN THE RECLINER CHAIR VIA LIFT. HEP GTT INFUSING AT 25MLS/HR. CHAUDHRY DRAINING CROW URINE VIA GRAVITY. CALL LIGHT IN REACH WILL REPORT TO ONCOMING SHIFT
--- NOTE | 2024-11-17 21:05 | NUR ---
ASSUMPTION OF CARE THIS RN ASSUMED CARE OF PATIENT AT 1900. PT A&O X3. UNSURE OF SPECIFIC DATE. PT NOTED TO BE FORGETFUL ABOUT HER STAY IN THE HOSPITAL AND SHORT TERM DETAILS. EDUCATED ON PLAN OF CARE. PT WAS EXTUBATED THIS AM 11/17. PT REMAINS ON RA. THICK PRODUCTIVE SPUTUM NOTED WITH WHITE/YELLOW COLORING. NGT FEEDS ON STANDBY UNTIL MORNING PER MD. SR WITH PAC'S/PVC'S NOTED ON TELE. RR 20'S. PT DOING ORAL CARE AND SELF SUCTIONING. BP STABLE. HEP GTT INFUSING PER EMAR. PT UP IN CHAIR AND ASKED TO STAY IN CHAIR TO SLEEP TONIGHT. PT ABLE TO USE BEDPAN WHILE IN CHAIR WITH STAFF ASSISTANCE. NO NOTED CHANGES TO NEURO SINCE PREVIOUS SHIFT. NEURO ASSESSED WITH PREVIOUS SHIFT AT SHIFT CHANGE. MILD LEFT SIDED WEAKNESS NOTED. OTHERWISE NO OTHER NOTED DEFICITS. CALLING APPROPRIATELY. CHAUDHRY CATHETER PATENT AND DRAINING TO GRAVITY. CALL LIGHT WITHIN REACH.
[2024-11-18] VITALS (17 sets, daily range): BP systolic 112–159; BP diastolic 59–111
[2024-11-18 03:05] LABS: BASOPHILS ABSOLUTE AUTO 0.08 K/mm3 (0.00-0.23); BASOPHILS PERCENT AUTO 1 % (0-2); EOSINOPHILS ABSOLUTE AUTO 0.27 K/mm3 (0.00-0.68); EOSINOPHILS PERCENT AUTO 2 % (0-6); Hematocrit 44.1 % (33.0-51.0); Hemoglobin 14.4 g/dL (11.5-16.0); IMMATURE GRAN ABSOLUTE AUTO 0.06 K/mm3 (0.00-0.10); IMMATURE GRAN PERCENT AUTO 1 % (0-1); LYMPHOCYTES ABSOLUTE AUTO 2.06 K/mm3 (0.84-5.20); LYMPHOCYTES PERCENT AUTO 18 % (21-46); MONOCYTES ABSOLUTE AUTO 0.82 K/mm3 (0.16-1.47); MONOCYTES PERCENT AUTO 7 % (4-13); Mean Corpuscular HGB 31.9 pg (26.0-34.0); Mean Corpuscular HGB Conc 32.7 g/dL (31.5-36.5); Mean Corpuscular Volume 98 fL (80-100); Mean Platelet Volume 10.8 fL (9.1-12.4); NEUTROPHILS ABSOLUTE AUTO 8.22 K/mm3 (1.96-9.15); NEUTROPHILS PERCENT AUTO 72 % (41-73); Platelet Count 395 K/mm3 (150-400); RDW Standard Deviation 57.6 fL (35.1-46.3); Red Blood Cell Count 4.52 M/mm3 (3.80-5.20); White Blood Cell Count 11.51 K/mm3 (4.00-11.30)
[2024-11-18 03:22] LABS: Albumin, Blood 2.9 g/dL (3.4-5.0); Anion Gap 11 mmol/L (3-11); Blood Urea Nitrogen 15 mg/dL (8-24); Bun/Creatinine Ratio 24.8 (12.0-20.0); CO2, Blood 23 mmol/L (21-32); Calcium, Blood 8.3 mg/dL (8.5-10.1); Chloride, Blood 111 mmol/L (98-108); Creatinine, Blood 0.61 mg/dL (0.40-1.00); Glomerular Filtration Rate 93 (60-); Glucose, Blood 97 mg/dL (70-99); Phosphorus, Blood 2.5 mg/dL (2.5-4.9); Potassium, Blood 4.3 mmol/L (3.5-5.5); Sodium, Blood 141 mmol/L (136-145)
[2024-11-18] MEDS ORDERED: Dose Adjust by Pharmacy XX STA (03:27)
--- NOTE | 2024-11-18 04:47 | NUR ---
SHIFT SUMMARY SEE PREVIOUS NOTE NO ACUTE CHANGES OVERNIGHT. NO CHANGES TO NEURO. PT CALLING APPROPRIATELY. PT TRANSFERRED FROM CHAIR TO BED VIA LIFT. NO CHANGES TO TELE. BP STABLE. ON RA WTIH SPO2 >92%. NGT IN PLACE, FLUSHING PER ORDER Q4HRS WITH 30MLS OF WATER. CHAUDHRY CATHETER IN PLACE DRAINING DARK YELLOW URINE. CALLING TO USE BEDPAN. ORAL CARE DONE PRN AND Q4HRS. PT CONTINUES TO SELF SUCTION. REPOSITIONING Q2HRS AND PRN. HEP GTT INFUSING PER EMAR. BED IN LOWEST POSITION AND CALL LIGHT WITHIN REACH. THIS RN WILL REPORT TO ONCOMING DAYSHIFT RN.
--- NOTE | 2024-11-18 07:41 | NUR ---
ASSUMPTION OF CARE AND THYROID MEDICATION NOTIFICATION TO DR. BARRERA: PATIENT RESTING IN BED. SHE DENIES PAIN AT THIS TIME. PATIENT ANSWERING QUESTIONS APPROPRIATELY. PATIENT CONTINUES TO HAVE WEAKNESS AND DECREASED FINE MOTOR SKILLS IN RIGHT ARM/HAND. PATIENT ALSO REPORTS DOUBLE VISION. SHE IS HAVING HER GLASSES BROUGHT IN. PATIENT REQUESTING THAT SHE BE ABLE TO TAKE HER HOME THYROID MEDICATION IN ADDITION TO ADDING A PROBIOTIC. DISCUSSED WITH DR. BARRERA. NEW ORDERS. PAIENT IS STABLE ON ROOM AIR WITH SPO2 >98%. PATIENT SUCTIONING HER ORAL CAVITIY INDEPENDENTLY. RR IN THE LOW 20S. BLOOD PRESSURES STABLE WITH MAPS >65. HR IN THE 80S. CHAUDHRY IN PLACE AND DRAINING YELLOW URINE. HEPARIN GTT CONTINUES AT 24 UNITS/KG/HR.
[2024-11-18] MEDS ORDERED: Metoprolol Succinate 50 MG TABCR PO SCH ×2 (09:00)
[2024-11-18] MEDS ORDERED: Aspirin 81 MG Chew PT SCH (09:00)
[2024-11-18] MEDS ORDERED: Lactobacil 2-S.Thermo-Bifido 1 1 Cap PT SCH (09:00)
[2024-11-18] MEDS ORDERED: Apixaban 5 MG Tab PO SCH (09:00)
[2024-11-18] MEDS ORDERED: Clopidogrel Bisulfate 75 MG Tab PT SCH (09:00)
--- NOTE | 2024-11-18 12:02 | NUR ---
Spiritual Care Visit. Pt. is awake and is sitting up in a chair. Family and friends are present as is the Pts. nurse. Facilitated introductions with family while nurse attended to the Pt. Afterward the Pt. diaplayed evidence of looking stronger and had a positive outlook. It had been established in previous visits that the Pt. was a strong woman of cecilia . Considered more matters of cecilia and belief. As other visitors arrived, this manager of software development prayed for the Pt. privately. Pt. verbalized gratitude for the spiritual care visit and welcomed this manager of software development to return.
[2024-11-18] MEDS ORDERED: Magnesium Hydroxide Conc 10 ML UDC PO PRN (13:05)
[2024-11-18] MEDS ORDERED: Docusate Sodium Liquid 100 MG UDC PO PRN (13:10)
[2024-11-18] MEDS ORDERED: THYROID PO SCH (14:00)
--- NOTE | 2024-11-18 19:02 | NUR ---
SHIFT SUMMARY: NEURO: PATIENT ALERT AND ORIENTED X 4 THROUGHOUT THE SHIFT. PATIENT DOES HAVE SOME SHORT TERM MEMORY LOSS AT THIS TIME. PATIENT ABLE TO EASILY MAKE HER NEEDS KNOWN. PATIENT CONTINUES TO HAVE SOME WEAKNESS ON HER LEFT SIDE. PATIENT PASSED HER SWALLOW EVALUATION. PATIENT UP TO CHAIR FOR MEALS WITH X2 ASSIST, GB AND WALKER. PATIENT WORKED WITH PT AND OT TODAY. PATIENT RECEPTIVE TO GOING TO REHAB. PATIENT REPORTED RIB PAIN WITH COUGHING. SPLINTING WELL WITH PILLOWS. CARDIAC: PATIENT BLOOD PRESSURES STABLE WITH MAPS >65. HR IN THE 70S. RESPIRATORY: PATIENT CONTINUES TO BE STABLE ON ROOM AIR WITH SPO2 >94%. PATIENT DENIED SHORTNESS OF BREATHING AT REST OR WITH ACTIVITY. PATIENT CONTINUES TO HAVE THICK, CAMILO SPUTUM. PATIENT HAS A STRONG COUGH. FLUTTER VALVE AT BEDSIDE. GI/: PATIENT'S DOBHOFF DISCONTINUED THIS MORNING AFTER PASSING HER SWALLOW EVAL. CHAUDHRY DISCONTINUED THIS AFTERNOON AROUND 15:30. PATIENT IS DUE TO VOID. PATIENT HAS AN ADEQUATE TO LOW APPETITE. PSYCHSOCIAL: PATIENT HAS MANY FAMILY AND FRIENDS. THEY ARE SUPPORTIVE OF THE PATIENT AND ENCOURAGING OF HER. PATIENT IS CALM AND COOPERATIVE WITH STAFF.
[2024-11-18] MEDS ORDERED: Latanoprost 0.005% Opth Soln 2.5 ML BOTHEYES SCH (21:00)
[2024-11-19] VITALS (23 sets, daily range): BP systolic 92–144; BP diastolic 51–121
[2024-11-19 03:30] LABS: BASOPHILS ABSOLUTE AUTO 0.12 K/mm3 (0.00-0.23); BASOPHILS PERCENT AUTO 1 % (0-2); EOSINOPHILS ABSOLUTE AUTO 0.25 K/mm3 (0.00-0.68); EOSINOPHILS PERCENT AUTO 2 % (0-6); Hematocrit 47.1 % (33.0-51.0); Hemoglobin 15.4 g/dL (11.5-16.0); IMMATURE GRAN ABSOLUTE AUTO 0.07 K/mm3 (0.00-0.10); IMMATURE GRAN PERCENT AUTO 1 % (0-1); LYMPHOCYTES ABSOLUTE AUTO 2.87 K/mm3 (0.84-5.20); LYMPHOCYTES PERCENT AUTO 21 % (21-46); MONOCYTES ABSOLUTE AUTO 1.15 K/mm3 (0.16-1.47); MONOCYTES PERCENT AUTO 8 % (4-13); Mean Corpuscular HGB 31.7 pg (26.0-34.0); Mean Corpuscular HGB Conc 32.7 g/dL (31.5-36.5); Mean Corpuscular Volume 97 fL (80-100); Mean Platelet Volume 10.7 fL (9.1-12.4); NEUTROPHILS ABSOLUTE AUTO 9.51 K/mm3 (1.96-9.15); NEUTROPHILS PERCENT AUTO 68 % (41-73); Platelet Count 414 K/mm3 (150-400); RDW Coefficient Variation 15.5 % (11.7-14.2); RDW Standard Deviation 55.8 fL (35.1-46.3); Red Blood Cell Count 4.86 M/mm3 (3.80-5.20); White Blood Cell Count 13.97 K/mm3 (4.00-11.30)
--- NOTE | 2024-11-19 03:44 | NUR ---
SHIFT SUMMARY: PT IS ALERT AND ORIENTED WITH MILD COGNITIVE CONFUSION, SHE FIXATES ON ITEMS AND FIDGETS NEEDS REMINDERS OF TIME, PLESANT AND COOPERATICV EWITH CARES ABLE TO MAKE NEEDS KNOWN, LEFT SIDED WEAKNESS IN ARM AND LEG, LEFT FACE DROOP MILD, NSR VSS, CONT OF BAB USES COMODE, SKIN INTACT NO WOUNDS BLANCHABLE REDNESS TO COCCYX, ROOM AIR, PT WILL NEED SNF REHAB FOR STRENGTH, SHE HAS CALL LIGHT AND FREQUENTLY USED ITEMS WITH IN REACH
[2024-11-19 03:47] LABS: Albumin, Blood 3.1 g/dL (3.4-5.0); Anion Gap 10 mmol/L (3-11); Blood Urea Nitrogen 19 mg/dL (8-24); Bun/Creatinine Ratio 27.4 (12.0-20.0); CO2, Blood 24 mmol/L (21-32); Calcium, Blood 8.6 mg/dL (8.5-10.1); Chloride, Blood 105 mmol/L (98-108); Creatinine, Blood 0.69 mg/dL (0.40-1.00); Glomerular Filtration Rate 90 (60-); Glucose, Blood 94 mg/dL (70-99); Phosphorus, Blood 2.9 mg/dL (2.5-4.9); Potassium, Blood 4.2 mmol/L (3.5-5.5); Sodium, Blood 135 mmol/L (136-145)
[2024-11-19] MEDS ORDERED: Thyroid 60 MG Tab PO SCH (06:00)
[2024-11-19] MEDS ORDERED: Misc. Tablet PO SCH (06:00)
[2024-11-19] MEDS ORDERED: OxyCODONE HCL 5 MG TAB PO PRN (08:20)
[2024-11-19] MEDS ORDERED: Aspirin 81 MG Chew PO SCH (09:00)
[2024-11-19] MEDS ORDERED: Losartan Potassium 25 MG Tab PO SCH (09:00)
[2024-11-19] MEDS ORDERED: Furosemide 40 MG Tab PO SCH (09:00)
[2024-11-19] MEDS ORDERED: BISA10S PR (14:28)
[2024-11-19] MEDS ORDERED: FAMO20 PO (14:29)
[2024-11-19] MEDS ORDERED: FURO20 PO (14:29)
[2024-11-19] MEDS ORDERED: LOSA25 PO (14:30)
[2024-11-19] MEDS ORDERED: OXAYDO5 M1 PO (14:32)
[2024-11-19] MEDS ORDERED: K-TAB ER20 ME2 PO (14:35)
[2024-11-19] MEDS ORDERED: Ondansetron HCl 2 MG / ML 2ML Vial IV ONE (14:45)
[2024-11-19] MEDS ORDERED: Ondansetron HCl 2 MG / ML 2ML Vial ONE (14:51)
[2024-11-19] MEDS ORDERED: NS 500 ML IV SCH (14:55)
--- NOTE | 2024-11-19 16:53 | NUR ---
SHIFT SUMMARY PT ALERT AND ORIENTED, SHORT TERM MEMORY IMPAIRMENT D/T CVA. AFEBRILE. ABLE TO FOLLOW COMMANDS. LEFT SIDE WEAKNESS AND NEGLECT. NSR W/ OCCASIONAL PVCS/PACS, BP WNL. RA, LUNGS CLR. NO EDEMA. REGULAR DIET, ABLE TO EAT INDEPENDENTLY. CONTINENT OF BOWEL/BLADDER AND ABLE TO USE BEDSIDE COMMODE WITH 2X ASSIST AND WALKER. PT/OT WORKED WITH PT TODAY. PIV TO KRISTI, POWERGLIDE TO SIGRID. REDNESS TO GLUTEAL FOLD WITH STAGE 2 WOUND, TISSUE BREAKDOWN - BARRIER CREAM AND MEPILEX APPLIED. [facility] ACCEPTED PT AND WHILE AWAITING TRANSFER, PT REACHED TO PICK ITEM UP FROM FLOOR, AND BEGAN TO SLIDE OUT OF CHAIR. FRIENDS AT BEDSIDE ABLE TO ALERT NURSING STAFF AND PT WAS ASSISTED FROM HALF IN CHAIR TO FULLY RECLINED IN CHAIR. NO INJURY NOTED, ASSESSED, OR REPORTED BY PATIENT. PT REPORTED FEELING DIZZY AFTER EVENT. DR. BARRERA NOTIFIED, DC MED REC AMENDED, ZOFRAN, 500ML IV BOLUS GIVEN. PATIENT WILL REMAIN OVERNIGHT FOR MONITORING AND COMPLETE TRANSFER TO FACILITY TOMORROW.
--- NOTE | 2024-11-19 17:56 | NUR ---
Spiritual Care Support Met with friends of the Pt. for a significant amount of time in the hallway outside of ICU. Listened to concerns of Pt. care and sought to normalize the Pt. experience. Friends display evidence of being heard. Will continue to support the Pt. and her support system.
--- NOTE | 2024-11-19 20:52 | NUR ---
ASSUMPTION OF CARE PT LYING IN BED AFTER UP TO BSC WITH 2 SBA. PAIN WITH MOVMENT. WILL TREAT PER OCT. ALERT AND ORIENTED TO ALL- SOME SHORT TERM MEMORY IMPAIRMENT. VSS. SINUS RHYTHM WITH PVC'S AND PAC'S. BP STABLE, SBP 129. RESPIRATIONS REGULAR. SAT 95% ON RA. PT UNSTEADY ON FEET AND UNCOORDINATED WITH LEFT SIDE, THOUGH GROSS MUSCLE STRENGTH INTACT AND SYMMETRIC. NO CHEST PAIN/PRESSURE, AB PAIN, SOB, N/V. PT BROUGHT DINNER TRAY WHICH SHE CONSUMED 50% OF. WILL REVIEW AND CONTINUE PLAN OF CARE.
[2024-11-19] MEDS ORDERED: Melatonin 5 MG Tablet PO ONE (23:00)
[2024-11-20] VITALS: BP 122/60
[2024-11-20 03:50] LABS: BASOPHILS PERCENT AUTO 1 % (0-2); EOSINOPHILS ABSOLUTE AUTO 0.26 K/mm3 (0.00-0.68); EOSINOPHILS PERCENT AUTO 2 % (0-6); Hematocrit 42.1 % (33.0-51.0); Hemoglobin 13.9 g/dL (11.5-16.0); IMMATURE GRAN ABSOLUTE AUTO 0.07 K/mm3 (0.00-0.10); IMMATURE GRAN PERCENT AUTO 1 % (0-1); LYMPHOCYTES ABSOLUTE AUTO 1.99 K/mm3 (0.84-5.20); LYMPHOCYTES PERCENT AUTO 16 % (21-46); MONOCYTES ABSOLUTE AUTO 1.04 K/mm3 (0.16-1.47); MONOCYTES PERCENT AUTO 8 % (4-13); Mean Corpuscular Volume 97 fL (80-100); Mean Platelet Volume 10.9 fL (9.1-12.4); NEUTROPHILS ABSOLUTE AUTO 9.01 K/mm3 (1.96-9.15); NEUTROPHILS PERCENT AUTO 72 % (41-73); Platelet Count 396 K/mm3 (150-400); RDW Standard Deviation 53.4 fL (35.1-46.3); Red Blood Cell Count 4.35 M/mm3 (3.80-5.20); White Blood Cell Count 12.47 K/mm3 (4.00-11.30)
[2024-11-20 04:09] LABS: Albumin, Blood 2.8 g/dL (3.4-5.0); Anion Gap 10 mmol/L (3-11); Blood Urea Nitrogen 17 mg/dL (8-24); Bun/Creatinine Ratio 21.7 (12.0-20.0); CO2, Blood 25 mmol/L (21-32); Calcium, Blood 8.2 mg/dL (8.5-10.1); Chloride, Blood 102 mmol/L (98-108); Creatinine, Blood 0.78 mg/dL (0.40-1.00); Glomerular Filtration Rate 79 (60-); Glucose, Blood 100 mg/dL (70-99); Phosphorus, Blood 4.5 mg/dL (2.5-4.9); Potassium, Blood 3.9 mmol/L (3.5-5.5); Sodium, Blood 133 mmol/L (136-145)
[2024-11-20] MEDS ORDERED: Potassium Chloride 40 MEQ in NS 250 ML IV ONE (06:15)
--- NOTE | 2024-11-20 06:26 | NUR ---
PT LYING IN BED AWAKE AND ORIENTED TO ALL BUT CONFUSED AT TIMES ABOUT SITUATION. PT MOVES ARMS WELL AND RIGHT LEG. LEFT LEG LESS MOBILE. A FEBRILE. PT HAD PAIN IN STERNUM THAT PERSISTS AND WAS TREATED PER OCT. PT SLEPT ABOUT 4 HOURS. PT SAYS SHE HAS NOT HAD HER HORMONE MEDICATIONS ALL WEEK AND SHE THINKS THIS MAY BE WHY SHE HAS HAD TROUBLE SLEEPING. SINUS RHYTHM WITH PVC'S, PAC'S, AND PAUSES, WITH STABLE BP. SATURATION 90-100% ON RA. PT PUT ON 1-2L NC DURING SLEEP SHE WAS DESATURATING INTO LOW 80'S. NO CHEST PRESSURE, CORONARY TYPE PAIN, AB PAIN, SOB, N/V. NO BM DURING SHIFT. CONTINENT. PT LEFT IN ROOM WITH CALL LIGHT HANDY, FOLLOWING BEDSIDE SHIFT REPORT WITH ONCOMING RN.
[2024-11-20 08:05] VITALS: BP 110/43
[2024-11-20] MEDS ORDERED: Losartan Potassium 25 MG Tab PO SCH (09:00)
[2024-11-20] MEDS ORDERED: Furosemide 20 MG Tab PO SCH (09:00)
[2024-11-20] MEDS ORDERED: Metoprolol Succinate 25 MG TABCR PO SCH (09:00)
[2024-11-20] MEDS ORDERED: 1/2 NS 250ml250 ML (11:54)
[2024-11-20 12:00] VITALS: BP 126/58
[2024-11-20] MEDS ORDERED: METO25ER PO (12:10)
[2024-11-20] MEDS ORDERED: FURO20 PO (12:26)
--- NOTE | 2024-11-20 12:40 | NUR ---
CALLED [facility] TO GIVE REPORT TRANSFERRED TO THE EXTENSION OF THE NURSE AT [facility] WHO IS ASSUMING CARE, LEFT MESSAGE. WILL AWAIT CALL BACK.
--- NOTE | 2024-11-20 13:13 | NUR ---
REPORT GIVEN TO ALANA REYES, WHO IS ASSUMING CARE OF PATIENT AT [facility].
--- NOTE | 2024-11-20 13:36 | NUR ---
DISCHARGE NOTE PT LEFT AT 1321 IN A WHEELCHAIR BEING TRANSPORTED BY [facility] TO [facility].
[2024-11-21] MEDS ORDERED: MISCTAB PO (12:38)
== END 2024-11-20 13:30 | DRG 308 ==
LOC: ER 12:15 → ERHOLD 14:44 → ICUE 14:44
PROVIDERS: Internal Medicine; Internal Medicine Cardiovascular Disease; Internal Medicine Critical Care Medicine; Student in an Organized Health Care Education/Training Program; ADMIT Internal Medicine
PROC: 5A1935Z Respiratory Ventilation, Less than 24 Consecutive Hours (ICD-10-PCS; principal; 2024-11-12)
PROC: 0BH17EZ Insertion of Endotracheal Airway into Trachea, Via Natural or Artificial Opening (ICD-10-PCS; 2024-11-12)
PROC: 0BH17EZ Insertion of Endotracheal Airway into Trachea, Via Natural or Artificial Opening (ICD-10-PCS; 2024-11-14)
PROC: 5A1945Z Respiratory Ventilation, 24-96 Consecutive Hours (ICD-10-PCS; 2024-11-14)
PROC: 02HV33Z Insertion of Infusion Device into Superior Vena Cava, Percutaneous Approach (ICD-10-PCS; 2024-11-14)
DX: I49.01 Ventricular fibrillation (principal); I50.23 Acute on chronic systolic (congestive) heart failure; J96.01 Acute respiratory failure with hypoxia; I63.9 Cerebral infarction, unspecified; J18.9 Pneumonia, unspecified organism; N17.9 Acute kidney failure, unspecified; G81.94 Hemiplegia, unspecified affecting left nondominant side; J44.0 Chronic obstructive pulmonary disease with (acute) lower respiratory infection; E87.20 Acidosis, unspecified; M96.A3 Multiple fractures of ribs associated with chest compression and cardiopulmonary resuscitation; I67.89 Other cerebrovascular disease; I46.2 Cardiac arrest due to underlying cardiac condition; E87.6 Hypokalemia; D75.839 Thrombocytosis, unspecified; J43.9 Emphysema, unspecified; R54 Age-related physical debility; I48.0 Paroxysmal atrial fibrillation; I49.3 Ventricular premature depolarization; I34.0 Nonrheumatic mitral (valve) insufficiency; I47.20 Ventricular tachycardia, unspecified; R29.810 Facial weakness; R41.3 Other amnesia; Z88.5 Allergy status to narcotic agent; Z85.118 Personal history of other malignant neoplasm of bronchus and lung; Z91.040 Latex allergy status; Z88.0 Allergy status to penicillin; Z90.2 Acquired absence of lung [part of]; Z87.891 Personal history of nicotine dependence; Z79.01 Long term (current) use of anticoagulants; Z92.21 Personal history of antineoplastic chemotherapy; Z78.1 Physical restraint status
CPT/HCPCS: 31500; 31720; 36415; 36556; 51702; 70450; 71045; 71260; 72125; 80047; 80048; 80053; 80069; 82330; 82803; 82947; 83735; 83880; 84100; 84132; 84484; 85014; 85025; 85520; 85610; 85730; 87040; 87070; 87205; 92610; 93005; 93010; 93306; 94002; 94003; 94640; 94664; 94762; 96365; 96366; 97110; 97162; 97166; 97530; 97535; 99291-25; 99292; A9270; C1751; J0330; J0360; J0461; J0696; J0780; J1644; J1650; J1940; J2250; J2405; J2470; J2704; J2765; J3010; J3475; J3480; J7040; J7050; J7060; J7120; Q9967

== ENCOUNTER 2024-11-21 02:25 | Observation (INO) | payer MEDICARE, OTHER ==
[~2024-11-21] VITALS: Ht 162.6 cm; Wt 43.0 kg
[~2024-11-21 02:25] MED LIST changes: +1/2 NS 250ml250 ML; +BISA10S PR; +ELIQUIS5 M2 PO; +FAMO20 PO; +FURO20 PO; +K-TAB ER20 ME2 PO; +LATA.005SO BOTHEYES; +LOSA25 PO; +METO25ER PO; +OXAYDO5 M1 PO
[2024-11-21 04:03] LABS: Source, Urine Straight Cath
[2024-11-21 04:05] LABS: Base Excess Venous 4.4 mmol/L; Bicarbonate Venous 26.1 mmol/L (24.0-30.0); PCO2 Venous 50.3 mmHg (38-42); pH Blood Venous 7.38 (7.34-7.37)
[2024-11-21 04:08] LABS: BASOPHILS ABSOLUTE AUTO 0.07 K/mm3 (0.00-0.23); BASOPHILS PERCENT AUTO 1 % (0-2); EOSINOPHILS ABSOLUTE AUTO 0.05 K/mm3 (0.00-0.68); EOSINOPHILS PERCENT AUTO 0 % (0-6); Hematocrit 45.8 % (33.0-51.0); Hemoglobin 15.3 g/dL (11.5-16.0); IMMATURE GRAN ABSOLUTE AUTO 0.06 K/mm3 (0.00-0.10); IMMATURE GRAN PERCENT AUTO 1 % (0-1); LYMPHOCYTES ABSOLUTE AUTO 1.32 K/mm3 (0.84-5.20); LYMPHOCYTES PERCENT AUTO 10 % (21-46); MONOCYTES ABSOLUTE AUTO 1.15 K/mm3 (0.16-1.47); MONOCYTES PERCENT AUTO 9 % (4-13); Mean Corpuscular HGB 31.3 pg (26.0-34.0); Mean Corpuscular HGB Conc 33.4 g/dL (31.5-36.5); Mean Corpuscular Volume 94 fL (80-100); Mean Platelet Volume 10.3 fL (9.1-12.4); NEUTROPHILS PERCENT AUTO 80 % (41-73); Platelet Count 477 K/mm3 (150-400); RDW Coefficient Variation 14.8 % (11.7-14.2); RDW Standard Deviation 51.2 fL (35.1-46.3); Red Blood Cell Count 4.89 M/mm3 (3.80-5.20); White Blood Cell Count 13.05 K/mm3 (4.00-11.30)
[2024-11-21 04:18] LABS: Bilirubin, Urine Neg (Neg); Blood, Urine Neg (Neg); Glucose Qualitative, Urine Neg (Neg); Ketones, Urine Neg (Neg); Leukocyte Esterase, Urine Neg (Neg); Nitrite, Urine Neg (Neg); Protein, Urine Neg (Neg); Specific Gravity, Urine 1.015 (1.003-1.022); Urobilinogen, Urine NORM (Normal)
[2024-11-21 04:23] LABS: Appearance, Urine Clear (Clear); Color, Urine Pale Yellow (P-Yellow); International Normalized Ratio 1.16; Prothrombin Time Results 12.3 Sec (9.7-11.5)
[2024-11-21 04:28] LABS: Albumin, Blood 3.5 g/dL (3.4-5.0); Albumin/Globulin Ratio 0.8 (0.8-1.8); Bilirubin, Total 1.1 mg/dL (0.1-1.0); Bun/Creatinine Ratio 17.7 (12.0-20.0); Calcium, Blood 9.4 mg/dL (8.5-10.1); Creatinine, Blood 0.68 mg/dL (0.40-1.00); Globulin, Blood 4.5 g/dL (2.2-4.0); Magnesium, Blood 1.9 mg/dL (1.6-2.4); Phosphorus, Blood 3.4 mg/dL (2.5-4.9); Potassium, Blood 3.7 mmol/L (3.5-5.5)
[2024-11-21] MEDS ORDERED: Ipratropium/Albuterol SulF 2.5-0.5MG/3 ML Amp INH PRN (05:05)
[2024-11-21] MEDS ORDERED: Ondansetron HCl 2 MG / ML 2ML Vial IV PRN (05:05)
[2024-11-21 06:35] LABS: U Amphetamine Screen Not Detected; U Barbituate Screen Not Detected; U Benzodiazapine Screen Not Detected; U Buprenorphine Screen Not Detected; U Cannabinoids Screen Not Detected; U Cocaine Screen Not Detected; U Methadone Screen Not Detected; U Methamphetamine Screen Not Detected; U Opiates Screen Not Detected; U Oxycodone Screen Not Detected; U Phencyclidine Screen Not Detected
[2024-11-21] MEDS ORDERED: OxyCODONE HCL 5 MG TAB PO PRN (07:55)
[2024-11-21] MEDS ORDERED: Albuterol 2.5 MG/3 ML VIAL INH PRN (07:55)
--- NOTE | 2024-11-21 08:55 | NUR ---
ADMISSION NOTE: PATIENT ARRIVED TO THE UNIT AT 0757 VIA GURNEY AND WAS TRANSFERRED ONTO THE BED. PATIENT ALERT; SHE IS CONFUSED; SHE THOUGHT SHE WAS AT A SCHOOL; BUT RECOGNIZED THAT [facility] APART[facility] FROM HER ROOM. SHE CALLS STAFF BY NAME. SHE GOT UP OUT OF BED SETTING OFF THE BED ALARM, TRANSFERRED ONTO THE CHAIR, PULLED PART OF THE BLIND DOWN. PATIENT ASSISTED TO THE RESTROOM WITH THE FWW; PATIENT UNSTEADY AND C/O BEING UNSTEADY. PATIENT CURRENTLY IN THE CHAIR; CHAIR ALARM IN PLACE, CALL LIGHT PROVIDED, ASKED ABOUT A 1:1 SITTER FROM DYE BOARDING MACHINE OPERATOR. NO SIGNS OR SYMPTOMS OF DISTRESS WITH PATIENT.
[2024-11-21] MEDS ORDERED: Famotidine 20 MG Tab PO SCH (09:00)
[2024-11-21] MEDS ORDERED: Enoxaparin 40 MG/0.4 ML SYR SC SCH (09:00)
[2024-11-21] MEDS ORDERED: Apixaban 5 MG Tab PO SCH (09:00)
[2024-11-21] MEDS ORDERED: Docusate Sodium 100 MG Cap PO SCH (09:00)
[2024-11-21] MEDS ORDERED: Metoprolol Succinate 25 MG TABCR PO SCH (09:00)
[2024-11-21] MEDS ORDERED: Losartan Potassium 25 MG Tab PO SCH (09:00)
[2024-11-21] MEDS ORDERED: Furosemide 20 MG Tab PO SCH (09:00)
[2024-11-21 11:55] VITALS: BP 140/89
[2024-11-21 12:13] VITALS: BP 111/71
[2024-11-21] MEDS ORDERED: MISCTAB PO (12:38)
[2024-11-21 15:42] VITALS: BP 114/68
[2024-11-21 16:12] LABS: BASOPHILS PERCENT AUTO 1 % (0-2); EOSINOPHILS ABSOLUTE AUTO 0.07 K/mm3 (0.00-0.68); EOSINOPHILS PERCENT AUTO 1 % (0-6); Hematocrit 41.8 % (33.0-51.0); Hemoglobin 13.9 g/dL (11.5-16.0); IMMATURE GRAN ABSOLUTE AUTO 0.07 K/mm3 (0.00-0.10); IMMATURE GRAN PERCENT AUTO 1 % (0-1); LYMPHOCYTES ABSOLUTE AUTO 1.56 K/mm3 (0.84-5.20); LYMPHOCYTES PERCENT AUTO 12 % (21-46); MONOCYTES ABSOLUTE AUTO 1.39 K/mm3 (0.16-1.47); MONOCYTES PERCENT AUTO 11 % (4-13); Mean Corpuscular HGB 31.7 pg (26.0-34.0); Mean Corpuscular HGB Conc 33.3 g/dL (31.5-36.5); Mean Corpuscular Volume 95 fL (80-100); Mean Platelet Volume 10.7 fL (9.1-12.4); NEUTROPHILS ABSOLUTE AUTO 9.99 K/mm3 (1.96-9.15); NEUTROPHILS PERCENT AUTO 76 % (41-73); Platelet Count 458 K/mm3 (150-400); RDW Coefficient Variation 14.9 % (11.7-14.2); RDW Standard Deviation 51.8 fL (35.1-46.3); Red Blood Cell Count 4.38 M/mm3 (3.80-5.20); White Blood Cell Count 13.18 K/mm3 (4.00-11.30)
[2024-11-21 16:31] LABS: Albumin, Blood 3.2 g/dL (3.4-5.0); Albumin/Globulin Ratio 0.9 (0.8-1.8); Bilirubin, Total 0.9 mg/dL (0.1-1.0); Bun/Creatinine Ratio 21.2 (12.0-20.0); Calcium, Blood 8.7 mg/dL (8.5-10.1); Creatinine, Blood 0.66 mg/dL (0.40-1.00); Globulin, Blood 3.6 g/dL (2.2-4.0); Potassium, Blood 3.9 mmol/L (3.5-5.5); Total Protein, Blood 6.8 g/dL (6.4-8.2)
--- NOTE | 2024-11-21 17:01 | NUR ---
SHIFT SUMMARY: PATIENT IS IN BED SLEEPING; RESPIRATIONS EVEN AND UNLABORED, 1:1 SITTER PRESENT. PATIENT DOES NOT PRESENT IMPULSIVENESS WHEN PEOPLE ARE PRESENT; SHE HAS TOO BE CONSTANTLY REMINDED DUE TO FORGETFULNESS AND OVERESTIMATES HER ABILITIES. PLAN OF CARE ONGOING.
[2024-11-21 19:00] VITALS: BP 118/67
[2024-11-21] MEDS ORDERED: Latanoprost 0.005% Opth Soln 2.5 ML BOTHEYES SCH (21:00)
[2024-11-21] MEDS ORDERED: Sennosides 8.6 MG Tab PO SCH (21:00)
[2024-11-21] MEDS ORDERED: ESTRADIOL PO SCH (21:00)
[2024-11-21] MEDS ORDERED: ESTRIOL PO SCH (21:00)
[2024-11-21] MEDS ORDERED: PROGESTERONE PO SCH (21:00)
[2024-11-21 23:47] VITALS: BP 139/78
--- NOTE | 2024-11-22 03:11 | NUR ---
SHIFT SUMMARY PATIENT APPEARS TO BE SLEEPING COMFORTABLY AT THIS TIME. SHE REMAINS VERY IMPULSIVE. 1;1 SITTER IS AT THE BEDSIDE TO PROMOTE SAFETY. PATIENT CAN ANSWER ALL ORIENTATION QUESTIONS CORRECTLY, BUT HER BEHAVIOR IS IMPULSIVE AND SHE DOES NOT HAVE GOOD SAFETY AWARENESS. VITAL SIGNS ARE STABLE. SAFETY PRECAUTIONS ARE BEING MAINTAINED.
[2024-11-22 04:41] VITALS: BP 124/61
[2024-11-22] MEDS ORDERED: THYROID PO SCH (06:00)
[2024-11-22 07:41] VITALS: BP 117/61
[2024-11-22 12:13] VITALS: BP 109/71
[2024-11-22 16:53] VITALS: BP 130/82
--- NOTE | 2024-11-22 17:36 | NUR ---
ASSUMED CARE OF PT. A/O X 4, SITTER AT BEDSIDE ASSITING WITH CARE. PT COOPERATIVE WITH CARE AND MAKES NEEDS KNOWN. UNEVENTFUL DAY FAMILY AND FRIENDS VISITED AND PT HAD A SHOWER WITH MEDIA SERVICES SPECIALIST HELP. PT TRANSFER UP TO CHAIR WITH MINIMAL ASSIST. PT UNSTABLE AND SHOULD USE FWW WITH GAIT BELT.
[2024-11-22 19:21] VITALS: BP 135/57
[2024-11-23 00:20] VITALS: BP 143/76
[2024-11-23 04:13] VITALS: BP 128/81
--- NOTE | 2024-11-23 04:32 | NUR ---
SHIFT SUMMARY: AOX3-4 INTERMITTENT CONFUSION AND IMPULSIVE. CLINICAL SITTER MOVED TO ANOTHER ROOM. PT TOLERATING MEDICATIONS WELL AND IS EASILY REDIRECTABLE. NO ACUTE EVENTS OVERNIGHT. SLEPT WELL THROUGH MOST OF THE NIGHT WITHOUT COMPLAINTS. PT CALLS APPROPRIATELY AT THIS TIME. PT IN BED RESTING, BED IN LOWEST POSITION, CALL LIGHT IN REACH. BED ALARM IN PLACE. CONTINUING CARE.
[2024-11-23 05:37] LABS: BASOPHILS ABSOLUTE AUTO 0.09 K/mm3 (0.00-0.23); BASOPHILS PERCENT AUTO 1 % (0-2); EOSINOPHILS ABSOLUTE AUTO 0.23 K/mm3 (0.00-0.68); EOSINOPHILS PERCENT AUTO 2 % (0-6); Hematocrit 42.5 % (33.0-51.0); Hemoglobin 13.9 g/dL (11.5-16.0); IMMATURE GRAN ABSOLUTE AUTO 0.05 K/mm3 (0.00-0.10); IMMATURE GRAN PERCENT AUTO 1 % (0-1); LYMPHOCYTES ABSOLUTE AUTO 2.33 K/mm3 (0.84-5.20); LYMPHOCYTES PERCENT AUTO 23 % (21-46); MONOCYTES ABSOLUTE AUTO 1.04 K/mm3 (0.16-1.47); MONOCYTES PERCENT AUTO 10 % (4-13); Mean Corpuscular HGB 31.7 pg (26.0-34.0); Mean Corpuscular HGB Conc 32.7 g/dL (31.5-36.5); Mean Corpuscular Volume 97 fL (80-100); Mean Platelet Volume 10.6 fL (9.1-12.4); NEUTROPHILS ABSOLUTE AUTO 6.58 K/mm3 (1.96-9.15); NEUTROPHILS PERCENT AUTO 64 % (41-73); Platelet Count 484 K/mm3 (150-400); RDW Standard Deviation 52.2 fL (35.1-46.3); Red Blood Cell Count 4.39 M/mm3 (3.80-5.20); White Blood Cell Count 10.32 K/mm3 (4.00-11.30)
[2024-11-23 05:58] LABS: Bun/Creatinine Ratio 18.2 (12.0-20.0); Calcium, Blood 8.8 mg/dL (8.5-10.1); Creatinine, Blood 0.71 mg/dL (0.40-1.00); Potassium, Blood 3.7 mmol/L (3.5-5.5)
[2024-11-23 07:19] VITALS: BP 134/67
[2024-11-23 11:31] VITALS: BP 109/81
[2024-11-23 16:08] VITALS: BP 138/96
--- NOTE | 2024-11-23 16:21 | NUR ---
Upon receiving a referral for spiritual care, I visited the patient. She is sitting on a chair and alert. She tells me about the medical and emotional struggles she has endured. She shares about her Orthodox cecilia and how she finds hope and meaning in her cecilia. I provided therapeutic listening, gentle director counseling bureau and prayer. PAtient responded well and showed signs of being encouraged in her cecilia.
--- NOTE | 2024-11-23 19:08 | NUR ---
ASSUMED CARE OF P. VERY PLEASENT PT WITH SITTER AT BEDSIDE TO LOOK AFTER FORGETFUL PT. NO C/O PAIN NO DISTRESS, PT IS A LOT MORE MOBILE BUT BALANCE IS STILL POOR AND WORKING WITH OT, OT STATED SHE NEEDED STANDBY ASSIST BECAUSE OF HER BALANCE, PT IS AWARE AND HAS BEEN USING CALL LIGHT. PT HAD MANY VISITERS TODAY AND IS NOW RESTING QUIETLY IN BED.
[2024-11-23 19:15] VITALS: BP 119/74
[2024-11-24 00:01] VITALS: BP 135/50
--- NOTE | 2024-11-24 04:51 | NUR ---
SHIFT SUMMARY: PT AOX4 WITH INTERMITTENT CONFUSION, EASILY REDIRECTABLE. LESS IMPULSIVE THAN YESTERDAY. PT STILL UNSTEADY GAIT AT TIMES, GETS DIZZY. 1PA TO THE BATHROOM, HAVING GOOD OUTPUT. PT TOLERATING MEDICATIONS WELL AND IS EAGER TO GET OUT OF THE HOSPITAL. VITAL SIGNS STABLE, NO ACUTE EVENTS OVERNIGHT. PT CALLING APPROPRIATELY AND ABLE TO MAKE NEEDS KNOWN. PT IN BED SLEEPING, BED IN LOWEST POSITION, CALL LIGHT IN REACH. CONTINUING CARE.
[2024-11-24 05:17] VITALS: BP 125/75
[2024-11-24 07:09] VITALS: BP 111/52
--- NOTE | 2024-11-24 14:52 | NUR ---
Pt. is awake and welcomes my visit. Friends are at bedside, but soon departed. Facilitated an update where the Pt. verbalized a terrible experience at the local rehab facility which resulted in her re-admission at our hospital. Considered matters of cecilia and belief and verbalized the experiences of the holy weekend. Listened with interest and empathy. Considered many other matters of cecilia and belief. After this prosthetics technician prayed for the Pt., the Pt. prayed also and specifically for our community and opportunies to share the gospel. Pt. verbalized gratitude for the spiritual care visit and especially for the opportunity have 1:1 time togther. The Pt. also verbally praised the care she has receieved at our hospital.
[2024-11-24 16:30] VITALS: BP 108/50
--- NOTE | 2024-11-24 17:49 | NUR ---
ASSUMED CARE OF PT. UNEVENTFUL DAY PT WAS COOPERATIVE WITH CARE WORKED WITH PHYSICAL THERAPY AND DID VERY WELL. PT WILL BE TRANSFERED PER CASE MANAGEMENT TOMORROW AT 1000. FAMILY AND FRIENDS AT BEDSIDE. PT HAVING MANY VISITORS TODAY
[2024-11-24 20:01] VITALS: BP 113/62
[2024-11-25 04:25] VITALS: BP 106/57
--- NOTE | 2024-11-25 04:40 | NUR ---
SHIFT SUMMARY: PT AOX4 AND IS CALLING APPROPRIATELY. NOT IMPULSIVE AT THIS TIME AND HAS BEEN CALLING FOR ASSISTANCE TO THE BATHROOM OR TO MOVE TO THE CHAIR ETC. STILL UNSTEADY GAIT AT TIMES AND COMPLAINS OF CHEST PAIN FROM HER RIBS. OTHERWISE TOLERATING MEDICATIONS WELL, AND NO COMPLAINTS. EAGER TO GET TO SNF. PT IN BED, BED IN LOWEST POSITION, CALL LIGHT IN REACH. CONTINUING CARE.
[2024-11-25 07:20] VITALS: BP 126/59
[2024-11-25] MEDS ORDERED: SENN187 PO (08:31)
[2024-11-25] MEDS ORDERED: DOCU100 PO (08:34)
[2024-11-25] MEDS ORDERED: ALBU2.5V5 INH (08:34)
[2024-11-25] MEDS ORDERED: ESTRIOL/ESTRADIOL PO (08:38)
[2024-11-25] MEDS ORDERED: THYROID PO (08:41)
--- NOTE | 2024-11-25 11:13 | NUR ---
DISCHARGE NOTE PT DISCHARGED TO [facility] FOR SNF. PT LEFT AT 1100. NO ACUTE CHANGES PRIOR TO DC. REPORT GIVEN TO [facility] NURSEAPOLINAR. HARD SCRIPT IN PACKET, GIVEN TO TRANSPORTER. PT'S PERSONAL MEDICATIONS GIVEN TO FAMILY. PT PICKED UP BY WHEELCHAIR.
== END 2024-11-25 11:15 ==
LOC: ER 02:25 → ERHOLD 02:26 → MEDS 02:26 → ERHOLD 02:26 → MEDS 08:00
PROVIDERS: Emergency Medicine; Internal Medicine; ADMIT Internal Medicine
DX: I63.9 Cerebral infarction, unspecified (principal); G81.94 Hemiplegia, unspecified affecting left nondominant side; I46.9 Cardiac arrest, cause unspecified; I50.23 Acute on chronic systolic (congestive) heart failure; I34.0 Nonrheumatic mitral (valve) insufficiency; J44.9 Chronic obstructive pulmonary disease, unspecified; I48.91 Unspecified atrial fibrillation; M96 Intraoperative and postprocedural complications and disorders of musculoskeletal system, not elsewhere classified; Z79.01 Long term (current) use of anticoagulants; Z79.899 Other long term (current) drug therapy; Z88.5 Allergy status to narcotic agent; Z88.0 Allergy status to penicillin; Z91.040 Latex allergy status
CPT/HCPCS: 36415; 70450; 71046; 72125; 72170; 80048; 80053; 81003; 82803; 83605; 83735; 83880; 84100; 85025; 85610; 85730; 93005; 93010; 94640; 94664; 94760; 97110-CQ; 97112; 97116; 97116-CQ; 97162; 97165; 97530; 97535; 99285-25; A9270; G0378

== ENCOUNTER 2024-12-19 14:18 | Emergency (ER) | payer MEDICARE, OTHER ==
[~2024-12-19] VITALS: Ht 162.6 cm; Wt 54.4 kg
[~2024-12-19 14:18] MED LIST changes: +ALBU2.5V5 INH; +DOCU100 PO; +ESTRIOL/ESTRADIOL PO; +MISCTAB PO; +SENN187 PO
[2024-12-19 15:45] VITALS: BP 139/97
== END 2024-12-19 16:21 | disposition home or self-care (01) ==
LOC: ER 14:18
DX: S09.90XA Unspecified injury of head, initial encounter (principal); J44.9 Chronic obstructive pulmonary disease, unspecified; W01.0XXA Fall on same level from slipping, tripping and stumbling without subsequent striking against object, initial encounter; Z87.891 Personal history of nicotine dependence; Z79.899 Other long term (current) drug therapy; Z91.040 Latex allergy status; Z88.0 Allergy status to penicillin; Z88.5 Allergy status to narcotic agent
CPT/HCPCS: 70450; 99283-25

== ENCOUNTER 2025-06-24 02:58 | Emergency (ER) | payer MEDICARE, OTHER ==
[~2025-06-24] VITALS: Ht 162.6 cm; Wt 53.5 kg
[2025-06-24] MEDS ORDERED: Ondansetron HCl 2 MG / ML 2ML Vial IV ONE (03:10)
[2025-06-24] MEDS ORDERED: NS 1,000 ML IV SCH (03:10)
[2025-06-24 03:41] LABS: BASOPHILS ABSOLUTE AUTO 0.04 K/mm3 (0.00-0.23); BASOPHILS PERCENT AUTO 0 % (0-2); EOSINOPHILS ABSOLUTE AUTO 0.01 K/mm3 (0.00-0.68); EOSINOPHILS PERCENT AUTO 0 % (0-6); Hematocrit 48.0 % (33.0-51.0); Hemoglobin 15.4 g/dL (11.5-16.0); IMMATURE GRAN ABSOLUTE AUTO 0.04 K/mm3 (0.00-0.10); IMMATURE GRAN PERCENT AUTO 0 % (0-1); LYMPHOCYTES ABSOLUTE AUTO 1.44 K/mm3 (0.84-5.20); LYMPHOCYTES PERCENT AUTO 10 % (21-46); MONOCYTES ABSOLUTE AUTO 0.76 K/mm3 (0.16-1.47); MONOCYTES PERCENT AUTO 5 % (4-13); Mean Corpuscular HGB Conc 32.1 g/dL (31.5-36.5); Mean Corpuscular Volume 94 fL (80-100); NEUTROPHILS ABSOLUTE AUTO 11.85 K/mm3 (1.96-9.15); NEUTROPHILS PERCENT AUTO 84 % (41-73); NRBC ABSOLUTE 0.00 K/mm3 (0.00-0.02); NRBC Auto 0.0 /100 WBC (0.0-0.2); Platelet Count 534 K/mm3 (150-400); RDW Coefficient Variation 15.6 % (11.7-14.2); RDW Standard Deviation 51.8 fL (35.1-46.3)
[2025-06-24 04:07] LABS: Alanine Aminotransfer (ALT/SGP 220.0 U/L (12-78); Albumin, Blood 3.6 g/dL (3.4-5.0); Albumin/Globulin Ratio 1.1 (0.8-1.8); Anion Gap 12.0 mmol/L (3-11); Aspartate Aminotrans (AST/SGOT 119.0 U/L (12-37); Bilirubin, Total 1.4 mg/dL (0.1-1.0); Blood Urea Nitrogen 31.0 mg/dL (8-24); CO2, Blood 23.0 mmol/L (21-32); Calcium, Blood 8.9 mg/dL (8.5-10.1); Chloride, Blood 103.0 mmol/L (98-108); Creatinine, Blood 0.87 mg/dL (0.40-1.00); Globulin, Blood 3.3 g/dL (2.2-4.0); Glucose, Blood 170.0 mg/dL (70-99); Magnesium, Blood 2.1 mg/dL (1.6-2.4); Potassium, Blood 3.7 mmol/L (3.5-5.5); Sodium, Blood 134.0 mmol/L (136-145); Total Protein, Blood 6.9 g/dL (6.4-8.2)
[2025-06-24] MEDS ORDERED: Metoprolol Tartrate 1 MG/ML 5 ML VIAL IV ONE ×3 (04:30→07:40)
[2025-06-24 05:08] LABS: Source, Urine Clean Catch
[2025-06-24 05:11] LABS: Bilirubin, Urine Neg (Neg); Glucose Qualitative, Urine Neg (Neg); Ketones, Urine Neg (Neg); Leukocyte Esterase, Urine 1+ (Neg); Protein, Urine 3+ (Neg); Specific Gravity, Urine 1.020 (1.003-1.022); Urobilinogen, Urine 1+ (Normal)
[2025-06-24 05:21] LABS: Color, Urine Yellow (P-Yellow)
[2025-06-24 05:22] LABS: Red Blood Cells, Urine Not Seen /hpf (0-2)
[2025-06-24] MEDS ORDERED: ONDA4ODT MM (08:45)
[2025-06-24 11:20] VITALS: BP 128/86
== END 2025-06-24 11:28 | disposition home or self-care (01) ==
LOC: ER 02:58
PROVIDERS: Emergency Medicine
DX: E86.0 Dehydration (principal); I48.91 Unspecified atrial fibrillation; Z79.01 Long term (current) use of anticoagulants; J44.9 Chronic obstructive pulmonary disease, unspecified; Z87.891 Personal history of nicotine dependence; Z91.040 Latex allergy status; Z88.0 Allergy status to penicillin; Z88.5 Allergy status to narcotic agent; Z79.899 Other long term (current) drug therapy
CPT/HCPCS: 74177; 80053; 81001; 83605; 83690; 83735; 84484; 85025; 87086; 93005; 93010; 96361; 96374-59; 96375; 96376; 99284-25; J1160; J2405; J7030; Q9967